=== PATIENT | female | born 1935 | race Caucasian/White ===

== ENCOUNTER 2024-07-08 14:05 | Emergency (ER) | payer MEDICARE, MEDICAID, SELFPAY ==
[2024-07-08] VITALS (8 sets, daily range): BP systolic 121–173; BP diastolic 50–94; PULSE 65–79; RESP 14–18; TEMP 37.6; O2SAT 93–96
--- NOTE | 2024-07-08 14:16 | W.ED.GENADLT ---
Documented by User: Qamar Tello DO 07/09/24 05:59 HPI - General Adult General: Chief complaint: Urogenital-Female Stated complaint: UTI Time Seen by Provider: 07/08/24 14:08 History of Present Illness: 88-year-old female presents emergency room from [facility] with complaints of UTI seems to worsen family is concerned she may be septic. Patient able to give her name and she knows that she is at the hospital but beyond that she really cannot Enterobacter any questions. She does not answer any questions regarding her condition or any symptoms. Per EMS she was started on Macrobid yesterday for UTI. Related Data Home Medications ?Medication ?Instructions ?Recorded ?Confirmed acetaminophen 325 mg tablet 650 mg PO Q4H PRN pain or temp 07/08/24 07/08/24 aspirin 81 mg tablet,delayed 81 mg PO DAILY 07/08/24 07/08/24 release bisacodyl 10 mg rectal suppository 10 mg DC DAILY PRN Constipation 07/08/24 07/08/24 carvedilol 12.5 mg tablet 12.5 mg PO BID 07/08/24 07/08/24 clopidogrel 75 mg tablet 75 mg PO DAILY 07/08/24 07/08/24 furosemide 20 mg tablet 20 mg PO DAILY 07/08/24 07/08/24 loperamide 2 mg capsule See Rx Instructions .Route 07/08/24 07/08/24 .COMPLEX PRN Diarrhea losartan 50 mg tablet 50 mg PO DAILY 07/08/24 07/08/24 magnesium hydroxide 400 mg/5 mL 15 ml PO DAILY PRN Constipation 07/08/24 07/08/24 oral suspension (Milk of Magnesia) nifedipine 30 mg tablet,extended 30 mg PO DAILY 07/08/24 07/08/24 release nitrofurantoin 100 mg PO BID 07/08/24 07/08/24 monohydrate/macrocrystals 100 mg capsule polyethylene glycol 3350 17 17 g PO DAILY 07/08/24 07/08/24 gram/dose oral powder (Miralax) Previous Rx's ?Medication ?Instructions ?Recorded cefdinir 300 mg capsule 300 mg PO BID 7 days #14 caps 07/08/24 tamsulosin 0.4 mg capsule (Flomax) 0.4 mg PO DAILY #30 caps 07/08/24 Allergies Allergy/AdvReac Type Severity Reaction Status Date / Time atorvastatin Allergy Unknown Verified 07/08/24 14:17 metformin Allergy Unknown Verified 07/08/24 14:17 Penicillins Allergy Unknown Verified 07/08/24 14:17 Review of Systems General: Reports: ROS unobtainable due to medical condition PFSH ED PFSH: Medical History (Updated 07/08/24 @ 19:35 by Monique Castañeda MD) Chronic combined systolic and diastolic CHF (congestive heart failure) Uterine prolapse HTN (hypertension) GERD (gastroesophageal reflux disease) CAD (coronary artery disease) Physical Exam Const: GENERAL APPEARANCE: cooperative ORIENTATION/CONSCIOUSNESS: Yes awake, Yes oriented to person and Yes oriented to place HENMT: COMMON NORMALS: normocephalic, atraumatic and hearing grossly normal bilaterally HEAD & SCALP: normocephalic and atraumatic Resp: COMMON NORMALS: normal respiratory effort, No retractions, No use of accessory muscles and clear to auscultation bilaterally AUSCULTATION: clear to auscultation bilaterally Cardio: COMMON NORMALS: regular rate and regular rhythm RATE: regular rate RHYTHM: regular rhythm HEART SOUNDS: Murmur heart sound present diastolic Location: apex Intensity: II/ GI: COMMON NORMALS: Soft to palpation and No hepatosplenomegaly present AUSCULTATION: Yes normoactive bowel sounds PALPATION: Yes Soft to palpation, No Tenderness to palpation present (GI), No Guarding due to palpation present (GI) and Yes No hepatosplenomegaly present : OTHER: Uterine prolapse Extremity: COMMON NORMALS: normal to inspection, capillary refill normal, no clubbing, cyanosis or edema, no calf tenderness and no pedal edema Neuro: SENSORIUM/ORIENTATION: Yes oriented to person and Yes oriented to place Skin: COMMON NORMALS: no rashes or lesions noted GENERAL SKIN EXAM: no rashes or lesions noted Course Vital Signs: Vital signs: Vital Signs Temperature 99.7 F H 07/08/24 14:05 Pulse Rate 65 07/08/24 21:30 Respiratory Rate 16 07/08/24 20:30 Blood Pressure 121/50 07/08/24 17:30 Pulse Oximetry 93 07/08/24 21:30 Oxygen Delivery Me thod Room Air 07/08/24 21:30 MDM - General Adult Medical Decision Making Significant uterine prolapse causing some difficulty with voiding. Initially a mini cath was placed had a large amount but changed to a Stahl and did have complete draining of bladder - 900 mL. Stahl still in place. Care signed out to Dr. Castañeda at change of shift. See final notes for diagnosis and disposition. Patient care was transitioned me at shift change. Awaiting CT results because of the concern for a widened mediastinum on chest x-ray. CT scan shows no acute process. Radiologist believes this was a shadow. This was reviewed and interpreted by myself the emergency room physician. I also reviewed the radiology report. Stahl catheter was placed for urinary retention. Patient has had a fever and mild leukocytosis in her urine and thus I am giving her some antibiotics as well. Assessment and plan: Urinary tract infection Urinary retention ? IV Rocephin and Stahl catheter placement - Discharged home - Discussed plan with patient. Answered any questions. - Evaluation and treatment of this problem were appropriate in the emergency setting. Lab Data 07/08/24 14:17 07/08/24 14:17 Radiology Impressions Abdomen/Pelvis CT 07/08/24 14:35 IMPRESSION: 1. Considerable prolapse of the pelvic floor. 2. Trans urethral Stahl catheter terminating in the empty urinary bladder. Possible diffuse bladder wall thickening. Consider cystitis. 3. 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 4. No other acute findings. 5. Additional details as above. Chest X-Ray 07/08/24 14:35 IMPRESSION: 1. Widening of the superior mediastinum on the right. This may represent a mass or lymphadenopathy. 2. No acute cardiopulmonary finding identified otherwise. Chest CTA 07/08/24 16:56 IMPRESSION: 1. No pulmonary emboli. 2. No focal consolidations. 3. The density seen on the chest radiograph dated earlier this day in the right paratracheal station represents vascular shadows from the right brachiocephalic artery. No mass or lymphadenopathy. Laboratory Results WBC 11.84 10^3/uL (3.29-11.43) H 07/08/24 14:17 RBC 3.51 10^6/uL (3.85-5.65) L 07/08/24 14:17 Hgb 10.30 g/dL (11.27-16.99) L 07/08/24 14:17 Hct 31.6 % (36-47) L 07/08/24 14:17 MCV 90.0 fl (85-98) 07/08/24 14:17 MCH 29.3 pg (27-33) 07/08/24 14:17 MCHC 32.6 g/dL (30-55) 07/08/24 14:17 RDW 13.2 % (12.1-15.1) 07/08/24 14:17 Plt Count 234 10^3/cmm (157-399) 07/08/24 14:17 MPV 10.2 fL (7.4-10.4) 07/08/24 14:17 Neut % (Auto) 87.6 % 07/08/24 14:17 Lymph % (Auto) 5.2 % 07/08/24 14:17 Gilchrist % (Auto) 5.6 % 07/08/24 14:17 Eos % (Auto) 0.8 % 07/08/24 14:17 Baso % (Auto) 0.3 % 07/08/24 14:17 Neut # (Auto) 10.37 10^3/uL (1.8-7.7) H 07/08/24 14:17 Lymph # (Auto) 0.6 10^3/uL (0.8-4.8) L 07/08/24 14:17 [place]christ # (Auto) 0.7 10^3/uL (0.2-0.9) 07/08/24 14:17 Eos # (Auto) 0.1 10^3/uL (0.0-0.8) 07/08/24 14:17 Baso # (Auto) 0.0 10^3/uL (0.0-0.1) 07/08/24 14:17 Nucleated RBC % (auto) 0 % 07/08/24 14:17 Nucleated RBCs # 0.0 /100WBC 07/08/24 14:17 Sodium 135 mmol/L (136-145) L 07/08/24 14:17 Potassium 3.9 mmol/L (3.5-5.1) 07/08/24 14:17 Chloride 99 mmol/L (98-107) 07/08/24 14:17 Carbon Dioxide 23 mmol/L (22-29) 07/08/24 14:17 Anion Gap 16.9 (5-19) 07/08/24 14:17 BUN 25 mg/dL (8-23) H 07/08/24 14:17 Creatinine 0.7 mg/dL (0.5-0.9) 07/08/24 14:17 GFR Calculation Not Reportable 07/08/24 14:17 Glucose 124 mg/dL (65-115) H 07/08/24 14:17 Calculated Osmolality 286 mOsm/kg (285-295) 07/08/24 14:17 Lactic Acid 2.4 mmol/L (0.5-2.2) H 07/08/24 14:17 Lactic Acid (Sepsis) 1.7 mmol/L (0.5-2.2) 07/08/24 17:03 Calcium 8.6 mg/dL (8.5-10.5) 07/08/24 14:17 Total Bilirubin 0.3 mg/dL (0.15-1.2) 07/08/24 14:17 AST 22 U/L (0-32) 07/08/24 14:17 ALT 14 U/L (0-33) 07/08/24 14:17 Alkaline Phosphatase 65 U/L (35-105) 07/08/24 14:17 Total Protein 6.1 g/dL (6.6-8.7) L 07/08/24 14:17 Albumin 3.4 g/dL (3.5-5.2) L 07/08/24 14:17 Globulin 2.7 g/dL (1.3-4.6) 07/08/24 14:17 Urine Color Yellow (Yellow) 07/08/24 14:20 Urine Appearance Clear (CLEAR) 07/08/24 14:20 Urine pH 8.0 (5-7) A 07/08/24 14:20 Ur Specific [place] 1.012 (1.005-1.030) 07/08/24 14:20 Urine Protein Negative (Negative) 07/08/24 14:20 Urine Glucose (UA) Negative (Normal) 07/08/24 14:20 Urine Ketones Negative (Negative) 07/08/24 14:20 Urine Blood Negative (Negative) 07/08/24 14:20 Urine Nitrate Negative (Negative) 07/08/24 14:20 Urine Bilirubin Negative (Negative) 07/08/24 14:20 Urine Urobilinogen 1.0 mg/dL (Negative) 07/08/24 14:20 Ur Leukocyte Esterase Negative (Negative) 07/08/24 14:20 Urine RBC 0-2 /hpf (0-2) 07/08/24 14:20 Urine WBC 6-10 /hpf (0-5) 07/08/24 14:20 Ur Squamous Epith Cells 0-5 /hpf (0-5) 07/08/24 14:20 Amorphous Sediment Not Reportable 07/08/24 14:20 Urine Bacteria None seen /hpf (NONE) 07/08/24 14:20 Hyaline Casts 0.81 /lpf 07/08/24 14:20 Discharge Plan Discharge Patient Disposition: Home Clinical Impression: Urinary tract infection, Urinary retention Condition: Stable Prescriptions: New tamsulosin [Flomax] 0.4 mg capsule 0.4 mg PO DAILY Qty: 30 0RF cefdinir 300 mg capsule 300 mg PO BID 7 Days Qty: 14 0RF No Action losartan 50 mg tablet 50 mg PO DAILY acetaminophen 325 mg Tablet 650 mg PO Q4H PRN (Reason: pain or temp) carvedilol 12.5 mg tablet 12.5 mg PO BID loperamide 2 mg capsule See Rx Instructions .ROUTE .COMPLEX PRN (Reason: Diarrhea) Rx Instructions: TAKE ONE CAPSULE BY MOUTH AFTER EVERY LOOSE STOOL, MAX 16 MG PER DAY. nifedipine 30 mg tablet extended release 30 mg PO DAILY clopidogrel 75 mg tablet 75 mg PO DAILY aspirin [Aspir-81] 81 mg Tablet,Delayed Release (Dr/Ec) 81 mg PO DAILY magnesium hydroxide [Milk of Magnesia] 400 mg/5 mL Suspension 15 ml PO DAILY PRN (Reason: Constipation) bisacodyl 10 mg Suppository 10 mg DC DAILY PRN (Reason: Constipation) furosemide 20 mg tablet 20 mg PO DAILY polyethylene glycol 3350 [Miralax] 17 gram/dose Powder 17 g PO DAILY nitrofurantoin monohyd/m-cryst 100 mg capsule 100 mg PO BID Discharge Orders: Discharge ED (Routine); Ordered 07/08/24 Ordered By: Monique Castañeda Referrals: Marshal Cox PA [Primary Care Provider] - Discharge Diet: Usual diet Discharge Activity: Increase activity as tolerated Patient Instructions: Stahl Catheter Placement and Care (ED), Opioid Safety, Pain Management Activity Restrictions/Additional Instructions: You will need to follow-up with your primary care provider or with urologist in the next 5 to 7 days for Stahl catheter removal and a postvoid residual. Thank you for choosing [facility] for your healthcare needs today. Please realize this is an emergency room and that we are providing you with a medical screening exam and this may not be complete and all inclusive of all the testing and or work up that you may need to determine your ailment or severity of your illness. You have been screened and evaluated and felt safe for discharge. Health conditions do change or evolve sometimes and as such it is important that you follow up with your Primary Doctor to be re checked, 3-5 days is a general good time frame for follow up. You are always welcome to return to the ED for re assessment if your symptoms are worsening or you have new concerns Print Language: Honduran Coding Level of Care Code ED Skills Instructor for Chg Fwd Documented by User: Monique Castañeda MD 07/08/24 19:39 HPI - General Adult General: Chief complaint: Urogenital-Female Stated complaint: UTI Time Seen by Provider: 07/08/24 14:08 Related Data Home Medications ?Medication ?Instructions ?Recorded ?Confirmed acetaminophen 325 mg tablet 650 mg PO Q4H PRN pain or temp 07/08/24 07/08/24 aspirin 81 mg tablet,delayed 81 mg PO DAILY 07/08/24 07/08/24 release bisacodyl 10 mg rectal suppository 10 mg DC DAILY PRN Constipation 07/08/24 07/08/24 carvedilol 12.5 mg tablet 12.5 mg PO BID 07/08/24 07/08/24 clopidogrel 75 mg tablet 75 mg PO DAILY 07/08/24 07/08/24 furosemide 20 mg tablet 20 mg PO DAILY 07/08/24 07/08/24 loperamide 2 mg capsule See Rx Instructions .Route 07/08/24 07/08/24 .COMPLEX PRN Diarrhea losartan 50 mg tablet 50 mg PO DAILY 07/08/24 07/08/24 magnesium hydroxide 400 mg/5 mL 15 ml PO DAILY PRN Constipation 07/08/24 07/08/24 oral suspension (Milk of Magnesia) nifedipine 30 mg tablet,extended 30 mg PO DAILY 07/08/24 07/08/24 release nitrofurantoin 100 mg PO BID 07/08/24 07/08/24 monohydrate/macrocrystals 100 mg capsule polyethylene glycol 3350 17 17 g PO DAILY 07/08/24 07/08/24 gram/dose oral powder (Miralax) Previous Rx's ?Medication ?Instructions ?Recorded cefdinir 300 mg capsule 300 mg PO BID 7 days #14 caps 07/08/24 tamsulosin 0.4 mg capsule (Flomax) 0.4 mg PO DAILY #30 caps 07/08/24 Allergies Allergy/AdvReac Type Severity Reaction Status Date / Time atorvastatin Allergy Unknown Verified 07/08/24 14:17 metformin Allergy Unknown Verified 07/08/24 14:17 Penicillins Allergy Unknown Verified 07/08/24 14:17 PENDING SALE TO [facility] ED PFSH: Medical History (Updated 07/08/24 @ 19:35 by Monique Castañeda MD) Chronic combined systolic and diastolic CHF (congestive heart failure) Uterine prolapse HTN (hypertension) GERD (gastroesophageal reflux disease) CAD (coronary artery disease) Course Vital Signs: Vital signs: Vital Signs Temperature 99.7 F H 07/08/24 14:05 Pulse Rate 65 07/08/24 21:30 Respiratory Rate 16 07/08/24 20:30 Blood Pressure 121/50 07/08/24 17:30 Pulse Oximetry 93 07/08/24 21:30 Oxygen Delivery Me thod Room Air 07/08/24 21:30 MDM - General Adult Medical Decision Making Care signed out to Dr. Castañeda at change of shift. See final notes for diagnosis and disposition. Patient care was transitioned me at shift change. Awaiting CT results because of the concern for a widened mediastinum on chest x-ray. CT scan shows no acute process. Radiologist believes this was a shadow. This was reviewed and interpreted by myself the emergency room physician. I also reviewed the radiology report. Stahl catheter was placed for urinary retention. Patient has had a fever and mild leukocytosis in her urine and thus I am giving her some antibiotics as well. Assessment and plan: Urinary tract infection Urinary retention ? IV Rocephin and Stahl catheter placement - Discharged home - Discussed plan with patient. Answered any questions. - Evaluation and treatment of this problem were appropriate in the emergency setting. Lab Data 07/08/24 14:17 07/08/24 14:17 Radiology Impressions Abdomen/Pelvis CT 07/08/24 14:35 IMPRESSION: 1. Considerable prolapse of the pelvic floor. 2. Trans urethral Stahl catheter terminating in the empty urinary bladder. Possible diffuse bladder wall thickening. Consider cystitis. 3. 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 4. No other acute findings. 5. Additional details as above. Chest X-Ray 07/08/24 14:35 IMPRESSION: 1. Widening of the superior mediastinum on the right. This may represent a mass or lymphadenopathy. 2. No acute cardiopulmonary finding identified otherwise. Chest CTA 07/08/24 16:56 IMPRESSION: 1. No pulmonary emboli. 2. No focal consolidations. 3. The density seen on the chest radiograph dated earlier this day in the right paratracheal station represents vascular shadows from the right brachiocephalic artery. No mass or lymphadenopathy. Laboratory Results WBC 11.84 10^3/uL (3.29-11.43) H 07/08/24 14:17 RBC 3.51 10^6/uL (3.85-5.65) L 07/08/24 14:17 Hgb 10.30 g/dL (11.27-16.99) L 07/08/24 14:17 Hct 31.6 % (36-47) L 07/08/24 14:17 MCV 90.0 fl (85-98) 07/08/24 14:17 MCH 29.3 pg (27-33) 07/08/24 14:17 MCHC 32.6 g/dL (30-55) 07/08/24 14:17 RDW 13.2 % (12.1-15.1) 07/08/24 14:17 Plt Count 234 10^3/cmm (157-399) 07/08/24 14:17 MPV 10.2 fL (7.4-10.4) 07/08/24 14:17 Neut % (Auto) 87.6 % 07/08/24 14:17 Lymph % (Auto) 5.2 % 07/08/24 14:17 Gilchrist % (Auto) 5.6 % 07/08/24 14:17 Eos % (Auto) 0.8 % 07/08/24 14:17 Baso % (Auto) 0.3 % 07/08/24 14:17 Neut # (Auto) 10.37 10^3/uL (1.8-7.7) H 07/08/24 14:17 Lymph # (Auto) 0.6 10^3/uL (0.8-4.8) L 07/08/24 14:17 [place] # (Auto) 0.7 10^3/uL (0.2-0.9) 07/08/24 14:17 Eos # (Auto) 0.1 10^3/uL (0.0-0.8) 07/08/24 14:17 Baso # (Auto) 0.0 10^3/uL (0.0-0.1) 07/08/24 14:17 Nucleated RBC % (auto) 0 % 07/08/24 14:17 Nucleated RBCs # 0.0 /100WBC 07/08/24 14:17 Sodium 135 mmol/L (136-145) L 07/08/24 14:17 Potassium 3.9 mmol/L (3.5-5.1) 07/08/24 14:17 Chloride 99 mmol/L (98-107) 07/08/24 14:17 Carbon Dioxide 23 mmol/L (22-29) 07/08/24 14:17 Anion Gap 16.9 (5-19) 07/08/24 14:17 BUN 25 mg/dL (8-23) H 07/08/24 14:17 Creatinine 0.7 mg/dL (0.5-0.9) 07/08/24 14:17 GFR Calculation Not Reportable 07/08/24 14:17 Glucose 124 mg/dL (65-115) H 07/08/24 14:17 Calculated Osmolality 286 mOsm/kg (285-295) 07/08/24 14:17 Lactic Acid 2.4 mmol/L (0.5-2.2) H 07/08/24 14:17 Lactic Acid (Sepsis) 1.7 mmol/L (0.5-2.2) 07/08/24 17:03 Calcium 8.6 mg/dL (8.5-10.5) 07/08/24 14:17 Total Bilirubin 0.3 mg/dL (0.15-1.2) 07/08/24 14:17 AST 22 U/L (0-32) 07/08/24 14:17 ALT 14 U/L (0-33) 07/08/24 14:17 Alkaline Phosphatase 65 U/L (35-105) 07/08/24 14:17 Total Protein 6.1 g/dL (6.6-8.7) L 07/08/24 14:17 Albumin 3.4 g/dL (3.5-5.2) L 07/08/24 14:17 Globulin 2.7 g/dL (1.3-4.6) 07/08/24 14:17 Urine Color Yellow (Yellow) 07/08/24 14:20 Urine Appearance Clear (CLEAR) 07/08/24 14:20 Urine pH 8.0 (5-7) A 07/08/24 14:20 Ur Specific [place] 1.012 (1.005-1.030) 07/08/24 14:20 Urine Protein Negative (Negative) 07/08/24 14:20 Urine Glucose (UA) Negative (Normal) 07/08/24 14:20 Urine Ketones Negative (Negative) 07/08/24 14:20 Urine Blood Negative (Negative) 07/08/24 14:20 Urine Nitrate Negative (Negative) 07/08/24 14:20 Urine Bilirubin Negative (Negative) 07/08/24 14:20 Urine Urobilinogen 1.0 mg/dL (Negative) 07/08/24 14:20 Ur Leukocyte Esterase Negative (Negative) 07/08/24 14:20 Urine RBC 0-2 /hpf (0-2) 07/08/24 14:20 Urine WBC 6-10 /hpf (0-5) 07/08/24 14:20 Ur Squamous Epith Cells 0-5 /hpf (0-5) 07/08/24 14:20 Amorphous Sediment Not Reportable 07/08/24 14:20 Urine Bacteria None seen /hpf (NONE) 07/08/24 14:20 Hyaline Casts 0.81 /lpf 07/08/24 14:20 All radiology interpretation(s) finalized by discharge Discharge Plan Discharge Patient Disposition: Home Clinical Impression: Urinary tract infection, Urinary retention Condition: Stable Prescriptions: New tamsulosin [Flomax] 0.4 mg capsule 0.4 mg PO DAILY Qty: 30 0RF cefdinir 300 mg capsule 300 mg PO BID 7 Days Qty: 14 0RF No Action losartan 50 mg tablet 50 mg PO DAILY acetaminophen 325 mg Tablet 650 mg PO Q4H PRN (Reason: pain or temp) carvedilol 12.5 mg tablet 12.5 mg PO BID loperamide 2 mg capsule See Rx Instructions .ROUTE .COMPLEX PRN (Reason: Diarrhea) Rx Instructions: TAKE ONE CAPSULE BY MOUTH AFTER EVERY LOOSE STOOL, MAX 16 MG PER DAY. nifedipine 30 mg tablet extended release 30 mg PO DAILY clopidogrel 75 mg tablet 75 mg PO DAILY aspirin [Aspir-81] 81 mg Tablet,Delayed Release (Dr/Ec) 81 mg PO DAILY magnesium hydroxide [Milk of Magnesia] 400 mg/5 mL Suspension 15 ml PO DAILY PRN (Reason: Constipation) bisacodyl 10 mg Suppository 10 mg DC DAILY PRN (Reason: Constipation) furosemide 20 mg tablet 20 mg PO DAILY polyethylene glycol 3350 [Miralax] 17 gram/dose Powder 17 g PO DAILY nitrofurantoin monohyd/m-cryst 100 mg capsule 100 mg PO BID Discharge Orders: Discharge ED (Routine); Ordered 07/08/24 Ordered By: Monique Castañeda Referrals: Marshal Cox PA [Primary Care Provider] - Discharge Diet: Usual diet Discharge Activity: Increase activity as tolerated Patient Instructions: Stahl Catheter Placement and Care (ED), Opioid Safety, Pain Management Activity Restrictions/Additional Instructions: You will need to follow-up with your primary care provider or with urologist in the next 5 to 7 days for Stahl catheter removal and a postvoid residual. Thank you for choosing [facility] for your healthcare needs today. Please realize this is an emergency room and that we are providing you with a medical screening exam and this may not be complete and all inclusive of all the testing and or work up that you may need to determine your ailment or severity of your illness. You have been screened and evaluated and felt safe for discharge. Health conditions do change or evolve sometimes and as such it is important that you follow up with your Primary Doctor to be re checked, 3-5 days is a general good time frame for follow up. You are always welcome to return to the ED for re assessment if your symptoms are worsening or you have new concerns Print Language: Honduran Coding Level of Care Code ED Skills Instructor for Paul Chavez
[2024-07-08 14:22] LABS: Basophils % 0.3 %; Eosinophils # 0.1 10^3/uL (0.0-0.8); Eosinophils % 0.8 %; Hematocrit 31.6 % (36-47); Lymphocytes # 0.6 10^3/uL (0.8-4.8); Lymphocytes % 5.2 %; Mean Corpuscular HGB Conc 32.6 g/dL (30-55); Mean Corpuscular Hemoglobin 29.3 pg (27-33); Mean Platelet Volume 10.2 fL (7.4-10.4); Monocytes # 0.7 10^3/uL (0.2-0.9); Monocytes % 5.6 %; Neutrophils # 10.37 10^3/uL (1.8-7.7); Neutrophils % 87.6 %; Nucleated Red Blood Cells % 0 %; Platelet Count 234 10^3/cmm (157-399); Red Blood Count 3.51 10^6/uL (3.85-5.65); Red Cell Distribution Width 13.2 % (12.1-15.1); White Blood Count 11.84 10^3/uL (3.29-11.43)
--- NOTE | 2024-07-08 14:22 | PC.PHAR ---
Pt is from [facility] med list 07/08/24 2:23pm
--- NOTE | 2024-07-08 14:35 | XR_ITS ---
WS: [id number] Exam: XR chest 1V portable [id number] Date/Time of Exam: 07/08/2024 2:35 PM Reason For Exam: dyspnea/cough No priors. The lungs are clear and fully inflated. Heart size is normal. Signs of cardiac valve replacement. Soft tissue mass along the superior mediastinum on the RIGHT. No pleural effusions. Bilateral high riding humeral heads noted most likely signifying bilateral rotator cuff degeneration. Recommendations: Nonemergent contrast chest CT could be considered for further work-up. XR/XR chest 1V portable [id number] IMPRESSION: 1. Widening of the superior mediastinum on the right. This may represent a mass or lymphadenopathy. 2. No acute cardiopulmonary finding identified otherwise.
--- NOTE | 2024-07-08 14:35 | CTR_ITS ---
PROCEDURE INFORMATION: Exam: CT Abdomen And Pelvis With Contrast Exam date and time: 07/08/2024 3:30 PM Age: 88 years old Clinical indication: Abdominal pain; Generalized; Additional info: Abd pain TECHNIQUE: Imaging protocol: Computed tomography of the abdomen and pelvis with contrast. Radiation optimization: All CT scans at this facility use at least one of these dose optimization techniques: automated exposure control; mA and/or kV adjustment per patient size (includes targeted exams where dose is matched to clinical indication); or iterative reconstruction. Contrast material: OMNIPAQUE 350; Contrast volume: 100 ml; Contrast route: INTRAVENOUS (IV); COMPARISON: CR XR chest 1V portable [id number] 07/08/2024 2:44 PM RADIATION DOSE METRICS: Total DLP (mGy-cm): 481.18 FINDINGS: Limitations: Study is suboptimal due to excessive motion artifact. Further limited by streak artifact from the arm at the side. Also limited by lack of bowel contrast. Lungs: Lung bases are clear as visualized. Diaphragm: Small hiatal hernia. Liver: Normal. No mass. Gallbladder and biliary ducts: Several gallstones in the gallbladder, the largest measuring slightly more than 1 cm. Otherwise, unremarkable. Pancreas: Normal. No ductal dilation. Spleen: Normal. No splenomegaly. Adrenal glands: Normal. No mass. Kidneys and ureters: Parenchymal scarring upper left kidney. Large extrarenal pelves bilaterally. This is believed to be a normal congenital variant. Otherwise, unremarkable. Stomach and bowel: Multiple diverticula from the colon. No diverticulitis. Otherwise, unremarkable. Appendix: No evidence of appendicitis. Intraperitoneal space: Unremarkable. No free air. No significant fluid collection. Vasculature: Small amount of arterial plaque. 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 Otherwise, unremarkable. Lymph nodes: Unremarkable. No enlarged lymph nodes. Urinary bladder: Trans urethral Stahl catheter terminating in the empty urinary bladder. Possible diffuse bladder wall thickening. Consider cystitis. Reproductive: Small uterine fibroid. Otherwise, unremarkable. Bones/joints: Mild scoliosis. Mild to severe multilevel spondylosis. Partial ankylosis visualized lower thoracic spine. Otherwise, unremarkable. Soft tissues: Considerable prolapse of the pelvic floor. A few buttock injection granulomas. Otherwise, unremarkable visualized body wall. Otherwise, unremarkable soft tissues. CT/CT abdomen pelvis w con* [id number] IMPRESSION: 1. Considerable prolapse of the pelvic floor. 2. Trans urethral Stahl catheter terminating in the empty urinary bladder. Possible diffuse bladder wall thickening. Consider cystitis. 3. 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 4. No other acute findings. 5. Additional details as above.
[2024-07-08 14:40] LABS: Alanine Aminotransferase 14 U/L (0-33); Albumin Level 3.4 g/dL (3.5-5.2); Alkaline Phosphatase 65 U/L (35-105); Anion Gap 16.9 (5-19); Aspartate Amino Transferase 22 U/L (0-32); Blood Urea Nitrogen 25 mg/dL (8-23); Calcium 8.6 mg/dL (8.5-10.5); Carbon Dioxide 23 mmol/L (22-29); Chloride 99 mmol/L (98-107); Globulin 2.7 g/dL (1.3-4.6); Glucose 124 mg/dL (65-115); Osmolality Calculated 286 mOsm/kg (285-295); Potassium 3.9 mmol/L (3.5-5.1); Sodium 135 mmol/L (136-145); Total Bilirubin 0.3 mg/dL (0.15-1.2); Total Protein 6.1 g/dL (6.6-8.7)
[2024-07-08 14:41] LABS: Lactic Sepsis W/Reflex 2.4 mmol/L (0.5-2.2)
[2024-07-08 14:42] LABS: Bilirubin Urine Negative (Negative); Blood Urine Negative (Negative); Glucose Urine UA Negative (Normal); Ketones Urine Negative (Negative); Leukocyte Esterase Urine Negative (Negative); Nitrate Urine Negative (Negative); Protein Urine Negative (Negative); Specific Gravity, Urine 1.012 (1.005-1.030); Urine Appearance Clear (CLEAR); Urine Color Yellow (Yellow)
[2024-07-08 14:44] LABS: Add Urine Microscopic? YES; Bacteria Urine None Seen /hpf; Hyaline Casts Urine 0.81 /lpf; RBC Urine 0-2 /hpf (0-2); Squamous Epithelial Cell Urine 0-5 /hpf (0-5)
[2024-07-08 14:58] LABS: UA Slide Review UA Slide Review Perf
[2024-07-08 14:59] LABS: Add Urine Culture? No
[2024-07-08] MEDS: iohexol 350 mg/mL 500 mL Btl (per mL) IV ×2 (15:34→17:54)
[2024-07-08 16:11] LABS: Reflex Lactate Order REFLEX LACTIC ORDERD
--- NOTE | 2024-07-08 16:56 | CTR_ITS ---
PROCEDURE INFORMATION: Exam: CTA Chest With Contrast Exam date and time: 07/08/2024 5:49 PM Age: 88 years old Clinical indication: Other: Enlarged mediastinum TECHNIQUE: Imaging protocol: Computed tomographic angiography of the chest with contrast. Exam focused on the arteries. 3D rendering (Not supervised by radiologist): MIP and/or 3D reconstructed images were created by the technologist. Radiation optimization: All CT scans at this facility use at least one of these dose optimization techniques: automated exposure control; mA and/or kV adjustment per patient size (includes targeted exams where dose is matched to clinical indication); or iterative reconstruction. Contrast material: OMNIPAQUE 350; Contrast volume: 60 ml; Contrast route: INTRAVENOUS (IV); COMPARISON: CR XR chest 1V portable [id number] 07/08/2024 2:44 PM RADIATION DOSE METRICS: Total DLP (mGy-cm): 344.4 FINDINGS: Pulmonary arteries: No pulmonary emboli. Aorta: Unremarkable. No aortic aneurysm. No aortic dissection. Lungs: No focal consolidations. Pleural spaces: Unremarkable. No pneumothorax. No pleural effusion. Heart: Prior TAVR. Coronary arteries: Coronary arterial atherosclerotic calcifications are present. Lymph nodes: Unremarkable. No enlarged lymph nodes. Gallbladder and biliary ducts: Multiple calcified stones in the gallbladder. Bones/joints: Multilevel bridging anterior osteophytes throughout the mid and lower thoracic spine. Soft tissues: Unremarkable. CT/CT angio chest PE protcl [id number] IMPRESSION: 1. No pulmonary emboli. 2. No focal consolidations. 3. The density seen on the chest radiograph dated earlier this day in the right paratracheal station represents vascular shadows from the right brachiocephalic artery. No mass or lymphadenopathy.
[2024-07-08 17:31] LABS: Lactic Acid level (Lactate) 1.7 mmol/L (0.5-2.2)
[2024-07-08] MEDS: cefTRIAXone 1,000 mg SDV 1000 MG IVP (19:51)
== END 2024-07-08 22:06 | disposition home or self-care (01) ==
PROVIDERS: Family Medicine; Emergency Provider Emergency Medicine; PCP Emergency Medicine
DX: N39.0 Urinary tract infection, site not specified (principal); R33.9 Retention of urine, unspecified; Z79.02 Long term (current) use of antithrombotics/antiplatelets; I10 Essential (primary) hypertension; I25.10 Atherosclerotic heart disease of native coronary artery without angina pectoris
CPT/HCPCS: 36415; 51702; 71045; 71275; 74177; 80053; 81001; 83605; 85025; 87040; 96374; 99285; J0696

== ENCOUNTER 2024-12-29 00:33 | Emergency (ER) | payer OTHER, MEDICAID, SELFPAY ==
[2024-12-29 00:35] VITALS: BP 149/87; PULSE 72; RESP 20; TEMP 37.2; O2SAT 97; BMI 21.4
--- OUTSIDE RECORDS SUMMARY | 2024-12-29 00:44 | XMS_ITS | Encounter Summary ---
Author Organization [facility] Address [address] [place] [address] Care Team Providers Care Rivet Tester Name Role Phone Alexander Das MD Primary Care Provider [phone] Reason for Referral * Outpatient Services (Routine) - Closed Specialty Diagnoses / Procedures Referred By Contac t Referred To Contact Diagnoses Thoracic or lumbosacral neuritis or radiculitis, unspecified Procedures XR FLUORO NEEDLE GUIDANCE Sam Altamirano MD NO ADDRESS ON FILE Referral ID Status Reason Start Date Expiration Date Visits Re quested Visits Authorized [id number] Closed 06/10/2013 07/11/2014 1 1 UTER REPAIR INSTRUCTOR Encounter Details Date Type Department Care Team (Late st Contact Info) Description 06/10/2013 Ancillary Orders [facility] Pain Management Procedures [place] [address] [place] [id number] Sam Altamirano MD NO ADDRESS ON FILE Thoracic or lumbosacral neuritis or radiculitis, unspecified (Primary Dx) Social History Tobacco Use Types Packs/Day Years Used Date Smoking Tobacco: Former Cigarettes 0.5 3 0 04/16/1956 - 04/16/1959 Smokeless Tobacco: Never Alcohol Use Standard Drinks/Week Comments No 0 (1 standard drink = 0.6 oz pur e alcohol) Comments No Sex and Gender Information Value Date Recorded Sex Assigned at Not on file Legal Sex Female 4:08 AM COMPUTER REPAIR INSTRUCTOR Gender Identity Not on file Sexual Orientation Not on file Occupation Industry Job Start Date Job End Date Not on file Not on file Not on file Not on file documented as of this encounter Plan of Treatment Not on file documented as of this encounter Results * XR FLUORO NEEDLE GUIDANCE (06/10/2013 7:59 AM COMPUTER REPAIR INSTRUCTOR) Anatomical Region Laterality Modality Computed Radiogr aphy Narrative 06/10/2013 8:00 AM COMPUTER REPAIR INSTRUCTOR Order information only. Exam was auto-finalized. Procedure Note Juanjose Reardon, RT - 06/10/2013 Order information only. Exam was auto-finalized. us Sam Altamirano MD DIAGNOSTIC IMAGING ORDERAB LES Final Result documented in this encounter Visit Diagnoses Diagnosis Thoracic or lumbosacral neuritis or radiculitis, unspecified- Primary Thoracic or lumbosacral neuritis or radiculitis, unspecified documented in this encounter Care Teams Rivet Tester Relationship Specialty Start Date End Date Alexander Das MD [address] [place] [address] PCP - General Family Practice 01/06/15 documented as of this encounter
--- OUTSIDE RECORDS SUMMARY | 2024-12-29 00:45 | XMS_ITS | Clinical Summary ---
Author Organization [facility] Address [address] [address] Care Team Providers Care Technology And Engineering Teacher Name Role Phone Alexander Das MD Primary Care Provider [phone] Allergies Active Allergy Reactions Criticality Noted Date Comments Atorvastatin Muscle Pain Low 08/22/2018 Metformin Nausea and Vomiting High 06/28/2011 Penicillins Rash Low 01/17/2008 Medications acetaminophen (TYLENOL) 325 mg Oral tablet Take 650 mg by mouth every 4 hours as needed. Active calcium carbonate + vitamin D (CALCIUM 600 + D) 600 mg(1,500mg) -400 unit Oral TabIndications:Ty pe II or unspecified type diabetes mellitus without mention of complication, not stated as uncontrolled Take 2 Tabs by mouth daily. Active aspirin (MAITE CHEWABLE) 81 mg Tablet, Chewable Take 1 Tablet (81 mg) by mouth daily. 30 Tablet 3 07/17/2015 Active LUMIGAN 0.01 % solution 06/16/2016 Active TRUEPLUS LANCETS 33 gauge TEST 4 TIMES DAILY. 100 Each 2 10/24/2016 Active meclizine (ANTIVERT) 25 mg tablet Take 1 Tablet (25 mg) by mouth 3 times daily as needed for Dizziness. 30 Tablet 07/11/2018 Active pantoprazole (PROTONIX) 40 mg Tablet, Delayed Release (E.C.) TAKE ONE TABLET BY MOUTH EVERY DAY 30 Tablet 11 06/24/2019 Active carvediloL (COREG) 12.5 mg tablet Take 1 Tablet (12.5 mg) by mouth 2 times daily. 180 Tablet 3 09/01/2020 Active losartan (COZAAR) 50 mg tablet Take 1 Tablet (50 mg) by mouth daily. 90 Tablet 3 09/01/2020 Active clopidogreL (PLAVIX) 75 mg Tablet Take 1 Tablet (75 mg) by mouth daily. 90 Tablet 3 09/01/2020 Active furosemide (LASIX) 20 mg tablet Take 1 Tablet (20 mg) by mouth daily. 90 Tablet 3 09/01/2020 Active NIFEdipine (PROCARDIA XL) 30 mg Extended Release 24 hour tablet Take 1 Tablet (30 mg) by mouth daily. 90 Tablet 3 09/01/2020 Active pravastatin (PRAVACHOL) 20 mg tablet 1 tablet Sunday, Sunday, Sunday only. 40 Tablet 3 09/23/2020 Active Active Problems Problem Noted Date Diagnosed Date Gastroesophageal reflux disease without esophagi tis 10/03/2020 Prediabetes 02/18/2019 Iron deficiency anemia 10/19/2018 Uterine procidentia 09/09/2018 Cystocele with uterine prolapse 08/01/2018 Atherosclerosis of [place] co ronary artery of [place] heart without angina pectoris 07/30/2018 Personal history of HI (myocardial infarction) 0 2015 Aortic valve prosthesis present 07/26/2015 MR (mitral regurgitation) 07/07/2015 Refused influenza vaccine 03/28/2015 Mixed hyperlipidemia 03/10/2015 History of giant cell arteritis 09/14/2011 Ataxia 06/14/2011 Essential hypertension 01/17/2008 Resolved Problems Problem Noted Date Diagnosed Date Resolved Date Blood glucose elevated 10/19/201802/18 Acute respiratory failure with hypoxia 08/02/2018 10/19/2018 Urinary retention 08/01/2018 10/19/2018 Complete uterine prolapse 08/01/2018 Bacteremia 07/31/2018 10/19/2018 Severe sepsis without septic shock 07/30/2018 10/19/2018 Acute cystitis without hematuria 07/30/2018 10/19/2018 Moderate protein-calorie malnutrition 07/30/2018 10/19/2018 Elevated troponin 07/05/2018 10/19/2018 Hypertensive urgency 07/05/2018 019 Submandibular gland swelling 07/25/2016 10/26/2016 Atherosclerosis of [place] co ronary artery of [place] heart with angina pectoris 07/07/20152016 Acute exacerbation of CHF (c ongestive heart failure) 07/01/2015 10/26/2016 Acute bronchitis 07/01/2015 10/26/2016 Controlled type 2 diabetes darren martinez without complication, without long-term current use of insulin 03/28/2015 06/30/2018 DM type 2, controlled, with complication 01/07/2015 03/28/2015 Bowel incontinence 04/06/2014 9 BRBPR (bright red blood per rectum) 04/06/2014 06/30/2018 Altered bowel function 04/06/201406/30 Glaucoma suspect 02/11/2014 06/30/2018 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 10/19/2018 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 08/07/201211/05 Eschar of scalp 11/09/2011 10/19/2018 Acute renal failure 08/20/2011 03/10/20 15 Dehydration 08/20/2011 11/06/2012 Metabolic acidosis 08/20/2011 2 Hyponatremia 08/20/2011 11/16/2011 Hypotension 08/20/2011 11/06/2012 Stroke 08/20/2011 02/05/2013 Overview (08/20/2011): Sudden vision loss of right eye most likely from central retinal artery occlusion Elevated sed rate 08/20/2011 09/14/2011 Overview (08/20/2011): Evaluation for temporal arteritis Generalized weakness 08/20/2011 013 Epigastric pain 08/20/2011 11/06/2012 Nausea & vomiting 08/20/2011 11/16/2011 Anemia 08/04/2011 08/06/2011 Headache(784.0) 08/04/2011 11/06/2012 UTI (lower urinary tract infection) 06/17/2011 11/06/2012 Overview (06/18/2011): levaquin started 3-4-12 Nausea with vomiting 06/14/2011 012 Constipation 06/14/2011 11/06/2012 Aortic stenosis, severe 06/14/201107/15 Overview (06/14/2011): Noted on Transthoracic echo CVA (cerebral infarction) 06/10/2011 DM w/o complication type II 01/17/2008 01/06/2015 Hyperlipidemia 01/17/2008 03/10/2015 Acute congestive heart failure 10/26/2016 Nonrheumatic aortic valve stenosis 10/26/2016 TIA - brief partial expressi ve aphasia 07/14/15 at 1900 10/26/2016 Immunizations Immunization Administration Dates Next Due Influenza Seasonal Unspecifi ed Formulation IM 01/14/2007 Influenza Vaccine High Dose 65+ Yrs IM 0,02/18/2019,02/18/2019 PNEUMOVAX (PPSV23) pneumococ javi polysaccharide 23-valent Vaccine 02/25/2020 PREVNAR (PCV13) pneumococcal 13-valent conjugate Vaccine 02/18/2019 Pneumococcal 13-tatyana Conj Vac c Patient Supplied 02/18/2019 Family History Medical History Relation Name Comments Diabetes Brother 1 Heart Disease Brother 2 Cancer Brother 3 Cancer Brother 4 Cancer Brother 5 Other Brother 6 infant Other Brother 7 Healthy Daughter 1 Healthy Daughter 2 Stroke Father Healthy Sister 1 Healthy Sister 2 Healthy Sister 3 Healthy Sister 4 Healthy Sister 5 Healthy Sister 6 Healthy Sister 7 Breast Cancer Sister 8 Heart Disease Sister 8 Blindness Neg Hx Detachment/Tears Neg Hx Glaucoma Neg Hx Macular Degen Neg Hx Relation Name Status Comments Brother 1 Alive Brother 2 Brother 3 Brother 4 Brother 5 Brother 6 Brother 7 Daughter 1 Alive Daughter 2 Alive Father Mother age 82 Sister 1 Alive Sister 2 Alive Sister 3 Alive Sister 4 Alive Sister 5 Alive Sister 6 Alive Sister 7 Alive Sister 8 Social History Tobacco Use Types Packs/Day Years Used Date Smoking Tobacco: Former Cigarettes 0.5 3 0 04/16/1956 - 04/16/1959 Smokeless Tobacco: Never Tobacco Cessation:Counseling Given: No Alcohol Use Standard Drinks/Week Comments No 0 (1 standard drink = 0.6 oz pur e alcohol) Social Connections Answer Date Recorded In a typical week, how many times do you talk on the phone with family, friends, or neighbors? More than three times a week 03/25/2020 How often do you get togethe r with friends or relatives? More than three times a week 03/25/2020 How often do you attend chur ch or islam services? Never 03/25/2020 Do you belong to any clubs o r organizations such as baptist groups, unions, fraternal or athletic groups, or school groups? Yes 03/25/2020 Attends Club or Organization Meetings Not on ben e 03/25/2020 Marital Status Not on file 03/25/2020 Financial Resource Strain Answer Date R ecorded How hard is it for you to pa y for the very basics like food, housing, medical care, and heating? Not hard at all 03/25/2020 Food Insecurity Answer Date Recorded Within the past 12 months, y ou worried that your food would run out before you got the money to buy more. Never true 03/25/20 20 Within the past 12 months, t he food you bought just didn't last and you didn't have money to get more. Never true 03/25/2020 Transportation Needs Answer Date Record ed In the past 12 months, has l ack of transportation kept you from medical appointments or from getting medications? No 03/16 In the past 12 months, has l ack of transportation kept you from meetings, work, or from getting things needed for daily living? No 03/25/2020 Education Answer Date Recorded What is the highest level of school you have completed or the highest degree you have received? 8th grade 03/25/2020 Comments No Sex and Gender Information Value Date Recorded Sex Assigned at Not on file Legal Sex Female 4:08 AM TRAFFIC CONTROL SIGNALER Gender Identity Not on file Sexual Orientation Not on file Occupation Industry Job Start Date Job End Date Not on file Not on file Not on file Not on file Last Filed Vital Signs Vital Sign Reading Time Taken Comments Blood Pressure 110/64 09/23/2020 10:46 AM CDT Pulse 71 09/23/2020 10:46 AM CDT Temperature 37.1 C (98.7 F) 09/23/2020 10:46 AM CDT Respiratory Rate 16 09/23/2020 10:4 6 AM CDT Oxygen Saturation 96% 09/23/2020 10: 46 AM CDT Inhaled Oxygen Concentration - - Weight 58.4 kg (128 lb 12.8 oz) 021 10:46 AM CDT Height 154.9 cm (5' 1 ) 09/23/2020 10:4 6 AM CDT Body Mass Index 24.34 09/23/2020 10:46 AM CDT Plan of Treatment Health Maintenance Due Date Last Done Comments DTAP/TDAP/TD VACCINES (1 - Tdap) 10[birth year]03/1954 ZOSTER VACCINE (1 of 2) 10/03/1985 OSTEOPOROSIS SCREENING 10/03/2000 RSV VACCINE (60+ or ) (1 - 1-dose 75+ series) 10/03/2010 DIABETES ANNUAL RETINAL EXAM 08/14/2015, 08/13/2014, 08/13/2014, Additional history exists DIABETES MICROALBUMIN ANNUAL SCREEN 02/13/2020 02/12/2019, 04/07/2016, 03/15/2015, Additional history exists DIABETES HBA1C Q 6 MONTHS 09/15/20202019, 09/09/2019, 09/09/2019, Additional history exists LDL CHOLESTEROL ANNUAL 03/17/2021 0, 09/09/2019, 02/12/2019, Additional history exists Traditional Medicare (ACO) A nnual Wellness Visit 03/26/2021 03/25/2020, 02/18/2019, 12/25/2017 DIABETES ANNUAL FOOT EXAM 09/23/20212020, 11/25/2013, 05/26/2011, Additional history exists INFLUENZA VACCINE (#1) 2024 0, 02/18/2019, 02/18/2019, Additional history exists PNEUMOCOCCAL VACCINE 50+ YEARS Completed 1 04/26/2019, 02/18/2019, 02/18/2019 Medical Devices Implanted Type Area Pastry Wrapper Device Identifier Shelf Expiration Date Model / Serial / Lot Lens [id number] 19.0 - [id number] Implanted:Qty: 1 on 09/26/2011 at [facility] Eye Left: Eye [facility] 06/25/2016 [id number] / [id number] / Promus 3x12-07/08/2015 Implanted:07/07 (Quantity not on file) Stent Resolute [id number]/24/20 16 Implanted:07/07 (Quantity not on file) Stent Davis Barbara 3-07/14/2015 Implanted:07/13 (Quantity not on file) Valve [id number] / [id number] / Description:14 FR CATHETER U SED Procedures Procedure Name Priority Date/Time Associated Diagnosis Comments LIPID PANEL Routine 03/17/2020 8:22 AM TRAFFIC CONTROL SIGNALER Mixed hyperlipidemia Personal history of HI (myocardial infarction) Iron deficiency anemia secondary to inadequate dietary iron intake HEMOGLOBIN A1C Routine 03/17/2020 8:22 AM TRAFFIC CONTROL SIGNALER Mixed hyperlipidemia Personal history of HI (myocardial infarction) Iron deficiency anemia secondary to inadequate dietary iron intake Controlled type 2 diabetes mellitus without complication, without long-term current use of insulin ([facility]) MICROALBUMIN/CREATIN INE RATIO, RANDOM UR Routine 02/12/2019 8:10 AM CDT Controlled type 2 diabetes mellitus without complication, without long-term current use of insulin ([facility]) DIABETES EYE EXAM Routine 03/19/2012 from Last 3 Months or Most Recently Relevant to Health Maintenance Results * (ABNORMAL) HEMOGLOBIN A1C (03/17/2020 8:22 AM TRAFFIC CONTROL SIGNALER) HEMOGLOBIN A1C 5.8(H) See Comment % 03/17/2020 8:58 PM TRAFFIC CONTROL SIGNALER [facility] [place] EST. AVG GLUCOSE, A1C 120 mg/dL 03/17/2020 8:58 PM TRAFFIC CONTROL SIGNALER [facility] Blood Venipuncture / Unknown 03/17/2020 8:22 AM TRAFFIC CONTROL SIGNALER 03/17/2020 8:40 PM TRAFFIC CONTROL SIGNALER Narrative [facility] - 03/17/2020 8:58 PM TRAFFIC CONTROL SIGNALER HGB A1C INTERPRETATION NORMAL: <5.7% PRE-DIABETES: 5.7 - 6.4% DIABETES: 6.5% OR GREATER Falsely low A1C measurements can occur when: 1. Anemia and/or hemolytic anemia is present. 2. Hemoglobin variants present. 3. Renal failure. 4. Transfusion of blood product in the last 120 days. We recommend ordering a fructosamine test([id number]) to more accurately assess glycemic status if any of the above conditions are present. us Alexander Das MD CHEMISTRY ORDERABLES Final Resu lt [facility] CLIA# [id number] [address] [place] [address] * (ABNORMAL) LIPID PANEL (03/17/2020 8:22 AM TRAFFIC CONTROL SIGNALER) CHOLESTEROL 199 <200 mg/dL 03/17/2020 9:48 PM [facility] TRIGLYCERIDE 222(H) <150 mg/dL 03/17/2020 9:48 PM [facility] HDL 39(L) 40 - 59 mg/dL 03/17/2020 9:48 PM [facility] LDL CALCULATED 116(H) <100 mg/dL 03/17/2020 9:48 PM [facility] NON-HDL CHOLESTEROL 160(H) <130 mg/dL 03/17/2020 9:48 PM [facility] Blood Venipuncture / Unknown 03/17/2020 8:22 AM TRAFFIC CONTROL SIGNALER 03/17/2020 8:40 PM [facility] Narrative [facility] - 03/17/2020 9:48 PM TRAFFIC CONTROL SIGNALER TOTAL CHOLESTEROL mg/dL Desirable <200 Borderline high 200-239 High >=240 TRIGLYCERIDES mg/dL Normal <150 Borderline high 150-199 High 200-499 Very high >=500 HDL CHOLESTEROL mg/dL Low <40 Normal 40-59 Desirable >=60 NON HDL CHOLESTEROL mg/dL Optimal <130 Near Optimal 130-159 Borderline High 160-189 Very High >=190 CALCULATED LDL mg/dL LDL <70, OPTIMAL if have Atherosclerotic cardiovascular disease (ASCVD) or intermediate or higher (>7.5%) 10 year risk of ASCVD including most adults with diabetes. LDL <100, Optimal in adult patients with low (<7.5%) 10 year ASCVD risk LDL 100-160, Suboptimal LDL >160, High LDL >190, Very high ATPIII Guidelines Reference Ranges for Lipid Panels (NCEP/AMA) . us Alexander Das MD CHEMISTRY ORDERABLES Final Resu lt [facility] CLIA# [id number] [address] [place] [address] * (ABNORMAL) MICROALBUMIN/CREATININE RATIO, RANDOM UR (02/12/2019 8:10 AM CDT) MICROALBUMIN, URINE 3.6 No Reference Range mg/dL 02/12/2019 8:17 PM CDT [facility] CREATININE, URINE 113.2 29.0 - 226.0 mg/dL 02/12/2019 8:17 PM CDT [facility] Comment:Reference Range vari es with fluid intake and diet. MICROALBUMIN/ CREAT RATIO, UR 31.8(H) <25.0 mg/g 02/12/2019 8:17 PM CDT [facility] Urine URINE SPECIMEN OBTAINED BY CLEAN CATCH PROCEDURE / Unknown Collection / Unknown 02/12/2019 8:10 AM CDT 02/12/2019 7:37 PM CDT Narrative [facility] - 02/12/2019 8:17 PM CDT Condition Microalbumin/Creat ratio Normal Males <17 Normal Females <25 Microalbuminuria Males 17-299 Microalbuminuria Females 25-299 Overt proteinuria >=300 us Alexander Das MD URINE ORDERABLES Final Result [facility] IA# [id number] [address] [place] [id number] * DIABETES EYE EXAM (03/19/2012) us Abstract Spg Provider HEALTH MAINTENANCE Final R esult from Last 3 Months or Most Recently Relevant to Health Maintenance Insurance MEDICARE PART A [place] Advance Directives For more information, please contact: [phone] * Full Code (Latest Code Status on File) Date Activated Date Inactivated Comments 07/30/2018 2:46 AM 08/04/2018 2:49 PM * Full Code Date Activated Date Inactivated Comments 07/05/2018 6:18 AM 07/06/2018 3:45 PM * Full Code Date Activated Date Inactivated Comments 07/14/2015 7:41 PM 07/17/2015 2:09 PM * Full Code Date Activated Date Inactivated Comments 07/14/2015 9:25 AM 07/14/2015 7:41 PM * Full Code Date Activated Date Inactivated Comments 07/13/2015 2:32 PM 07/14/2015 9:25 AM Care Teams Technology And Engineering Teacher Relationship Specialty Start Date End Date Alexander Das MD [address] [place] [id number] PCP - General Family Practice 01/06/15
--- OUTSIDE RECORDS SUMMARY | 2024-12-29 00:45 | XMS_ITS | Encounter Summary ---
Author Organization [facility] Address [address] [place] [address] Care Team Providers Care Metal Finisher Name Role Phone Alexander Das MD Primary Care Provider [phone] Encounter Details Date Type Department Care Team (Latest Contact Info) Description 04/19/2005 Outpatient Historical [facility] [place] [address] [place] [address] [phone] Annabella Badillo, [facility] [address] [place] [address] [phone] HYPERTENSION NOS (Primary Dx) Social History Tobacco Use Types Packs/Day Years Used Date Smoking Tobacco: Never Assessed Comments Unknown Sex and Gender Information Value Date Recorded Sex Assigned at Not on file Legal Sex Female 4:08 AM CLINICAL DIRECTOR Gender Identity Not on file Sexual Orientation Not on file documented as of this encounter Plan of Treatment Not on file documented as of this encounter Visit Diagnoses Diagnosis Unspecified essential hypertension- Primary documented in this encounter Care Teams Metal Finisher Relationship Specialty Start Date End Date Alexander Das MD [address] [place] [phone] PCP - General Family Practice 01/06/15 documented as of this encounter
--- OUTSIDE RECORDS SUMMARY | 2024-12-29 00:45 | XMS_ITS | Encounter Summary ---
Author Organization [facility] Address [address] [place] [address] Care Team Providers Care Top Trimmer Name Role Phone Alexander Das MD Primary Care Provider [phone] Encounter Details Date Type Department Care Team (Latest Contact Info) Description 06/16/2005 Outpatient Historical [facility] [address] [place] [address] [phone] Elena Crawford MD [address] [place] [phone] HYPERTENSION NOS (Primary Dx) Social History Tobacco Use Types Packs/Day Years Used Date Smoking Tobacco: Never Assessed Comments Unknown Sex and Gender Information Value Date Recorded Sex Assigned at Not on file Legal Sex Female 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
--- OUTSIDE RECORDS SUMMARY | 2024-12-29 00:45 | XMS_ITS | Encounter Summary ---
Author Organization [facility] Address [address] [place] [address] Care Team Providers Care Cost And Sales Record Supervisor Name Role Phone Alexander Das MD Primary Care Provider [phone] Encounter Details Date Type Department Care Team (Latest Contact Info) Description 01/09/2007 Outpatient Historical [facility] [address] [place] [address] [phone] Elena Crawford MD [address] [place] [address] Unspecified Essential Hypertension (Primary Dx); DM w/o Complication Type II (CMS/HCC) Social History Tobacco Use Types Packs/Day Years Used Date Smoking Tobacco: Never Assessed Comments Unknown Sex and Gender Information Value Date Recorded Sex Assigned at Not on file Legal Sex Female 4:08 AM FABRICATOR SPECIAL ITEMS Gender Identity Not on file Sexual Orientation Not on file documented as of this encounter Plan of Treatment Not on file documented as of this encounter Visit Diagnoses Diagnosis Unspecified essential hypertension- Primary Type II or unspecified type diabetes mellitus without mention of complication, not stated as uncontrolled documented in this encounter Care Teams Cost And Sales Record Supervisor Relationship Specialty Start Date End Date Alexander Das MD [address] [place] [phone] PCP - General Family Practice 01/06/15 documented as of this encounter
--- OUTSIDE RECORDS SUMMARY | 2024-12-29 00:45 | XMS_ITS | Encounter Summary ---
Author Organization [facility] Address [address] [place] [address] Care Team Providers Care Mud Tank Operator Name Role Phone Alexander Das MD Primary Care Provider [phone] Reason for Referral * Outpatient Services (Routine) - Closed Specialty Diagnoses / Procedures Referred By Contac t Referred To Contact Diagnoses Unspecified essential hypertension Preoperative clearance Aortic stenosis, moderate Procedures ECHO COMPLETE Les Perez MD [address] [facility] [address] [place] [address] Phone: tel: fax: [facility] Pre-Registration [place] CALL TO MAKE APPOINTMENT ONLY [address] [place] [address] Phone: tel: fax: Referral ID Status Reason Start Date Expiration Date Visits Re quested Visits Authorized [id number] Closed 01/15/2013 03/07/2013 1 1 Encounter Details Date Type Department Care Team (Late st Contact Info) Description 01/15/2013 Ancillary Orders [facility]- [place] [address] [place] [address] Les Perez MD [address] [place] [address] Unspecified essential hypertension (Primary Dx); Preoperative clearance; Aortic stenosis, moderate Social History Tobacco Use Types Packs/Day Years Used Date Smoking Tobacco: Former Cigarettes 0.5 3 0 04/16/1956 - 04/16/1959 Smokeless Tobacco: Never Alcohol Use Standard Drinks/Week Comments No 0 (1 standard drink = 0.6 oz pur e alcohol) Comments No Sex and Gender Information Value Date Recorded Sex Assigned at Not on file 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 Gender Identity Not on file Sexual Orientation Not on file Occupation Industry Job Start Date Job End Date Not on file Not on file Not on file Not on file documented as of this encounter Plan of Treatment Not on file documented as of this encounter Results * ECHO COMPLETE (01/15/2013 10:58 AM CDT) 01/15/2013 9:47 AM CDT Narrative INTERFACE SYSTEM - 01/15/2013 12:15 PM CDT [facility] [address] [facility] [address] [place] [address] Transthoracic Echocardiography Patient: Alina Loaiza Study ID: ECHO STRESS TEST Gender: F : 1935 Age: 77 Room: Study Date: 01/15/2013 Pt Status: Outpatient Study Time: 09:47 AM Ordering:Les Perez [[id number]] Interpreting:Les Perez [[id number]] Low Voltage Technician: Mallorie Morfin [facility] Indications and History: Pre-operative Cardiovascular Evaluation. Aortic Stenosis. Hypertension. Labs, prior tests, procedures, and surgery: Transthoracic echocardiography (August 20, 2011). The aortic valve showed moderate stenosis. EF was 55%. Procedure information: Comparison was made to the study of August 20, 2011. Study status: Routine. Procedure: Transthoracic echocardiography. Image quality was fair. Scanning was performed from the parasternal, apical, subcostal, and suprasternal notch acoustic windows. Transthoracic stress echocardiography. Stress portion was not performed due to baseline echocardiographic abnormalites detected. Study components: M-mode, 2D, complete spectral Doppler, and color Doppler. Height: Height: 154.9cm. Height: 61in. Weight: Weight: 64kg. Weight: 140.7lb. Body mass index: BMI: 26.7kg/m^2. Body surface area: BSA: 1.68m^2. Patient status: Outpatient. Summary and Conclusion: - Left ventricle: The cavity size was normal. Wall thickness was increased in a pattern of moderate LVH. Systolic function was normal. The estimated ejection fraction was in the range of 60% to 65%. No diagnostic regional wall motion abnormality identified. Doppler parameters are consistent with abnormal left ventricular relaxation (grade 1 diastolic dysfunction). - Right ventricle: The cavity size was normal. Systolic function was normal. Systolic pressure was within the normal range. - Atrial septum: The interatrial septum was hypermobile. - Aortic valve: Trileaflet; moderately thickened, moderately calcified leaflets. There was severe stenosis. Mean gradient: 42mm Hg (S). Peak gradient: 77mm Hg (S). VTI ratio of LVOT to aortic valve: 0.18. Valve area: 0.58cm^2(VTI). Peak velocity ratio of LVOT to aortic valve: 0.17. Valve area: 0.54cm^2 (Vmax). - Mitral valve: Mildly thickened leaflets. Mild regurgitation. - Tricuspid valve: Mild regurgitation. - Pulmonic valve: Trivial to mild regurgitation. Comparison: Compared to the previous study, these findings represent worsening of aortic stenosis. Cardiac Anatomy: LEFT VENTRICLE: The cavity size was normal. Wall thickness was increased in a pattern of moderate LVH. Systolic function was normal. The estimated ejection fraction was in the range of 60% to 65%. No diagnostic regional wall motion abnormality identified. Doppler parameters are consistent with abnormal left ventricular relaxation (grade 1 diastolic dysfunction). RIGHT VENTRICLE: The cavity size was normal. Systolic function was normal. Systolic pressure was within the normal range. LEFT ATRIUM: The atrium was normal in size. RIGHT ATRIUM: The atrium was normal in size. ATRIAL SEPTUM: The interatrial septum was hypermobile. No defect or patent foramen ovale was identified. AORTIC VALVE: Trileaflet; moderately thickened, moderately calcified leaflets. Valve mobility was restricted. Doppler: There was severe stenosis. Trivial regurgitation. VTI ratio of LVOT to aortic valve: 0.18. Valve area: 0.58cm^2(VTI). Indexed valve area: 0.35cm^2/m^2 (VTI). Peak velocity ratio of LVOT to aortic valve: 0.17. Valve area: 0.54cm^2 (Vmax). Indexed valve area: 0.32cm^2/m^2 (Vmax). Mean gradient: 42mm Hg (S). Peak gradient: 77mm Hg (S). MITRAL VALVE: Mildly thickened leaflets. Mobility was not restricted. No echocardiographic evidence for prolapse. Doppler: There was no evidence for stenosis. Mild regurgitation. Valve area by pressure half-time: 3.39cm^2. Indexed valve area by pressure half-time: 2.02cm^2/m^2. TRICUSPID VALVE: Structurally normal valve. Mobility was not restricted. Doppler: There was no evidence for stenosis. Mild regurgitation. PULMONIC VALVE: Not well visualized. Doppler: There was no evidence for stenosis. Trivial to mild regurgitation. PERICARDIUM: There was no pericardial effusion. AORTA: Aortic root: The aortic root was normal in size. Aortic arch: The aortic arch was normal in size. SYSTEMIC VEINS: Inferior vena cava: The vessel was normal in size. INTRACARDIAC MASS THROMBUS: No intracavitary masses or thrombi detected. 2D measurements Adult Normal Range Left ventricle LVID ED, chord, PLAX *41.3 mm 43-52 LVID ES, chord, PLAX *19.48 mm 23-38 FS, chord, PLAX 53 % >29 LVPW, ED 16.45 mm IVS/LVPW ratio, ED 0.99 <1.3 Ventricular septum IVS, ED 16.33 mm LVOT Diam, S 20.1 mm AP diam 20.15 mm Area 3.17 cm^2 Aorta Root diam, ED 24.13 mm AAo AP diam, S 30.94 mm Right ventricle RVID ED, PLAX *17.27 mm 19-38 Doppler measurements Adult Normal Range Left ventricle IVRT 97 ms 60-100 Ea, lat paul, tiss DP 64.79 cm/s E/Ea, lat palu, tiss DP 1 LVOT Peak gracia, S 75.12 cm/s VTI, S 18.53 cm HR 74 bpm Cardiac output 4.4 L/min Cardiac index 2.6 L/(min-m^2) Aortic valve Peak gracia, S 440.14 cm/s Mean gracia, S 308.65 cm/s VTI, S 102.53 cm Mean gradient, S 42 mm Hg Peak gradient, S 77 mm Hg VTI ratio LVOT/AV 0.18 Area, VTI 0.58 cm^2 Area index (VTI) 0.35 cm^2/m^2 Peak gracia ratio, LVOT/AV 0.17 Area, Vmax 0.54 cm^2 Area index (Vmax) 0.32 cm^2/m^2 Mitral valve Peak E gracia 64.79 cm/s Peak A gracia 114.83 cm/s Deceleration time 224 ms 150-230 Pressure half-time 65 ms Peak E/A ratio 0.56 Area (PHT) 3.39 cm^2 Area index (PHT) 2.02 cm^2/m^2 Tricuspid valve Regurg peak gracia 234.14 cm/s Peak RV-RA gradient, S 22 mm Hg Max regurg gracia 234.14 cm/s Legend: Mean values are shown as u=mean value. Asterisk (*) gipson values outside specified normal range. [facility] is accredited with the Intersocietal Commission for the Accreditation of Echocardiography Laboratories (ICAEL) Prepared and Electronically Authenticated Les Perez [[id number]] Confirmed 01/15/2013 12:15 Procedure Note Les Perez MD - 01/15/2013 [facility] [facility] [address] [place] [address] Transthoracic Echocardiography Patient: Alina Loaiza Study ID: ECHO STRESS TEST Gender: F : 1935 Age: 77 Room: Study Date: 01/15/2013 Pt Status: Outpatient Study Time: 09:47 AM Ordering:Les Perez [[id number]] Interpreting:Les Perez [[id number]] Low Voltage Technician: Mallorie Morfin [facility] Indications and History: Pre-operative Cardiovascular Evaluation. Aortic Stenosis. Hypertension. Labs, prior tests, procedures, and surgery: Transthoracic echocardiography (August 20, 2011). The aortic valve showed moderate stenosis. EF was 55%. Procedure information: Comparison was made to the study of August 20, 2011. Study status: Routine. Procedure: Transthoracic echocardiography. Image quality was fair. Scanning was performed from the parasternal, apical, subcostal, and suprasternal notch acoustic windows. Transthoracic stress echocardiography. Stress portion was not performed due to baseline echocardiographic abnormalites detected. Study components: M-mode, 2D, complete spectral Doppler, and color Doppler. Height: Height: 154.9cm. Height: 61in. Weight: Weight: 64kg. Weight: 140.7lb. Body mass index: BMI: 26.7kg/m^2. Body surface area: BSA: 1.68m^2. Patient status: Outpatient. Summary and Conclusion: - Left ventricle: The cavity size was normal. Wall thickness was increased in a pattern of moderate LVH. Systolic function was normal. The estimated ejection fraction was in the range of 60% to 65%. No diagnostic regional wall motion abnormality identified. Doppler parameters are consistent with abnormal left ventricular relaxation (grade 1 diastolic dysfunction). - Right ventricle: The cavity size was normal. Systolic function was normal. Systolic pressure was within the normal range. - Atrial septum: The interatrial septum was hypermobile. - Aortic valve: Trileaflet; moderately thickened, moderately calcified leaflets. There was severe stenosis. Mean gradient: 42mm Hg (S). Peak gradient: 77mm Hg (S). VTI ratio of LVOT to aortic valve: 0.18. Valve area: 0.58cm^2(VTI). Peak velocity ratio of LVOT to aortic valve: 0.17. Valve area: 0.54cm^2 (Vmax). - Mitral valve: Mildly thickened leaflets. Mild regurgitation. - Tricuspid valve: Mild regurgitation. - Pulmonic valve: Trivial to mild regurgitation. Comparison: Compared to the previous study, these findings represent worsening of aortic stenosis. Cardiac Anatomy: LEFT VENTRICLE: The cavity size was normal. Wall thickness was increased in a pattern of moderate LVH. Systolic function was normal. The estimated ejection fraction was in the range of 60% to 65%. No diagnostic regional wall motion abnormality identified. Doppler parameters are consistent with abnormal left ventricular relaxation (grade 1 diastolic dysfunction). RIGHT VENTRICLE: The cavity size was normal. Systolic function was normal. Systolic pressure was within the normal range. LEFT ATRIUM: The atrium was normal in size. RIGHT ATRIUM: The atrium was normal in size. ATRIAL SEPTUM: The interatrial septum was hypermobile. No defect or patent foramen ovale was identified. AORTIC VALVE: Trileaflet; moderately thickened, moderately calcified leaflets. Valve mobility was restricted. Doppler: There was severe stenosis. Trivial regurgitation. VTI ratio of LVOT to aortic valve: 0.18. Valve area: 0.58cm^2(VTI). Indexed valve area: 0.35cm^2/m^2 (VTI). Peak velocity ratio of LVOT to aortic valve: 0.17. Valve area: 0.54cm^2 (Vmax). Indexed valve area: 0.32cm^2/m^2 (Vmax). Mean gradient: 42mm Hg (S). Peak gradient: 77mm Hg (S). MITRAL VALVE: Mildly thickened leaflets. Mobility was not restricted. No echocardiographic evidence for prolapse. Doppler: There was no evidence for stenosis. Mild regurgitation. Valve area by pressure half-time: 3.39cm^2. Indexed valve area by pressure half-time: 2.02cm^2/m^2. TRICUSPID VALVE: Structurally normal valve. Mobility was not restricted. Doppler: There was no evidence for stenosis. Mild regurgitation. PULMONIC VALVE: Not well visualized. Doppler: There was no evidence for stenosis. Trivial to mild regurgitation. PERICARDIUM: There was no pericardial effusion. AORTA: Aortic root: The aortic root was normal in size. Aortic arch: The aortic arch was normal in size. SYSTEMIC VEINS: Inferior vena cava: The vessel was normal in size. INTRACARDIAC MASS THROMBUS: No intracavitary masses or thrombi detected. 2D measurements Adult Normal Range Left ventricle LVID ED, chord, PLAX *41.3 mm 43-52 LVID ES, chord, PLAX *19.48 mm 23-38 FS, chord, PLAX 53 % >29 LVPW, ED 16.45 mm IVS/LVPW ratio, ED 0.99 <1.3 Ventricular septum IVS, ED 16.33 mm LVOT Diam, S 20.1 mm AP diam 20.15 mm Area 3.17 cm^2 Aorta Root diam, ED 24.13 mm AAo AP diam, S 30.94 mm Right ventricle RVID ED, PLAX *17.27 mm 19-38 Doppler measurements Adult Normal Range Left ventricle IVRT 97 ms 60-100 Ea, lat paul, tiss DP 64.79 cm/s E/Ea, lat paul, tiss DP 1 LVOT Peak gracia, S 75.12 cm/s VTI, S 18.53 cm HR 74 bpm Cardiac output 4.4 L/min Cardiac index 2.6 L/(min-m^2) Aortic valve Peak gracia, S 440.14 cm/s Mean gracia, S 308.65 cm/s VTI, S 102.53 cm Mean gradient, S 42 mm Hg Peak gradient, S 77 mm Hg VTI ratio LVOT/AV 0.18 Area, VTI 0.58 cm^2 Area index (VTI) 0.35 cm^2/m^2 Peak gracia ratio, LVOT/AV 0.17 Area, Vmax 0.54 cm^2 Area index (Vmax) 0.32 cm^2/m^2 Mitral valve Peak E gracia 64.79 cm/s Peak A gracia 114.83 cm/s Deceleration time 224 ms 150-230 Pressure half-time 65 ms Peak E/A ratio 0.56 Area (PHT) 3.39 cm^2 Area index (PHT) 2.02 cm^2/m^2 Tricuspid valve Regurg peak gracia 234.14 cm/s Peak RV-RA gradient, S 22 mm Hg Max regurg gracia 234.14 cm/s Legend: Mean values are shown as u=mean value. Asterisk (*) gipson values outside specified normal range. [facility] is accredited with the Intersocietal Commission for the Accreditation of Echocardiography Laboratories (ICAEL) Prepared and Electronically Authenticated Les Perez [[id number]] Confirmed 01/15/2013 12:15 Les Perez MD ORDERABLES Final Resu lt INTERFACE SYSTEM Refer to clinic/hospital department documented in this encounter Visit Diagnoses Diagnosis Unspecified essential hypertension Preoperative clearance Preoperative examination, unspecified Aortic stenosis, moderate Aortic valve disorders Unspecified essential hypertension- Primary Preoperative clearance Preoperative examination, unspecified Aortic stenosis, moderate Aortic valve disorders documented in this encounter Care Teams Mud Tank Operator Relationship Specialty Start Date End Date Alexander Das MD [address] [place] [phone] PCP - General Family Practice 01/06/15 documented as of this encounter
--- OUTSIDE RECORDS SUMMARY | 2024-12-29 00:45 | XMS_ITS | Encounter Summary ---
Author Organization [facility] Address [address] [place] [address] Care Team Providers Care Plumbing And Heating Mechanic Name Role Phone Alexander Das MD Primary Care Provider [phone] Encounter Details Date Type Department Care Team (Latest Contact Info) Description 05/30/2005 Outpatient Historical 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
--- OUTSIDE RECORDS SUMMARY | 2024-12-29 00:45 | XMS_ITS | Encounter Summary ---
Author Organization [facility] Address [address] [place] [address] Care Team Providers Care Director Of Software Development Name Role Phone Alexander Das MD Primary Care Provider [phone] Reason for Visit * Reason Comments Medication Refill Encounter Details Date Type Department Care Team (Late st Contact Info) Description 04/04/2019 Refill [facility] [place] [address] Elisha Rogel, [facility] [address] [facility] [address] [place] [address] Social History Tobacco Use Types Packs/Day Years Used Date Smoking Tobacco: Former Cigarettes 0.5 3 0 04/16/1956 - 04/16/1959 Smokeless Tobacco: Never Alcohol Use Standard Drinks/Week Comments No 0 (1 standard drink = 0.6 oz pur e alcohol) Comments No Sex and Gender Information Value Date Recorded Sex Assigned at Not on file 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 OXANA CONCEPCION EY TECHNICIAN * Telephone Encounter - Princess Rivera - 04/04/2019 10:02 AM CST Refill per electronic request. Carvedilol 12.5 mg po BID. 180/3 OXANA HEALY EY TECHNICIAN documented in this encounter Plan of Treatment Not on file documented as of this encounter Visit Diagnoses Not on filedocumented in this encounter Care Teams Director Of Software Development Relationship Specialty Start Date End Date Alexander Das MD [address] [place] [phone] PCP - General Family Practice 01/06/15 documented as of this encounter
--- OUTSIDE RECORDS SUMMARY | 2024-12-29 00:45 | XMS_ITS | Encounter Summary ---
Author Organization [facility] Address [address] [place] [address] Care Team Providers Care Coin Machine Mechanic Name Role Phone Alexander Das MD Primary Care Provider [phone] Encounter Details Date Type Department Care Team (Latest Contact Info) Description 04/21/2005 Outpatient Historical [facility] [address] [place] [address] [phone] Annabella Badillo, [facility] [address] [place] [phone] HYPOTHYROIDISM NOS (Primary Dx) Social History Tobacco Use Types Packs/Day Years Used Date Smoking Tobacco: Never Assessed Comments Unknown Sex and Gender Information Value Date Recorded Sex Assigned at Not on file 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
--- OUTSIDE RECORDS SUMMARY | 2024-12-29 00:45 | XMS_ITS | Encounter Summary ---
Author Organization [facility] Address [address] [place] [address] Care Team Providers Care Grain Thresher Name Role Phone Alexander Das MD Primary Care Provider [phone] Encounter Details Date Type Department Care Team (Latest Contact Info) Description 06/09/2005 Outpatient Historical [facility] [address] [place] [address] [phone] Elena Crafword MD [address] [place] [phone] HYPERTENSION NOS (Primary Dx) Social History Tobacco Use Types Packs/Day Years Used Date Smoking Tobacco: Never Assessed Comments Unknown Sex and Gender Information Value Date Recorded Sex Assigned at Not on file Legal Sex Female 4:08 AM PAPER COUNTER Gender Identity Not on file Sexual Orientation Not on file documented as of this encounter Plan of Treatment Not on file documented as of this encounter Visit Diagnoses Diagnosis Unspecified essential hypertension- Primary documented in this encounter Care Teams Grain Thresher Relationship Specialty Start Date End Date Alexander Das MD [address] [place] [address] [phone] PCP - General Family Practice 01/06/15 documented as of this encounter
--- OUTSIDE RECORDS SUMMARY | 2024-12-29 00:45 | XMS_ITS | Clinical Summary ---
Author Organization [facility] Address [address] [address] Care Team Providers Care Customer Account Specialist Name Role Phone Vinod Das DO Primary Care Provider [phone] Allergies Active Allergy Reactions Criticality Noted Date Comments Atorvastatin Muscle Pain Low 08/22/2018 Metformin Nausea and Vomiting High 06/28/2011 Penicillins Rash Low 01/17/2008 Medications lancets (TRUEplus Lancets) 33 gauge TEST 4 TIMES DAILY. 100 Each 2 7 Active aspirin (MAITE CHEWABLE) 81 mg Tablet, Chewable Take 1 Tablet (81 mg) by mouth daily. 30 Tablet 3 6 Active bimatoprost (Lumigan) 0.01 % solution 7 Active Additional Information Patient not taking.Reported on 05/01/2023 carvediloL (COREG) 12.5 mg tablet take one tablet by mouth twice a day 180 Tablet 1 4 Active NIFEdipine (PROCARDIA XL) 30 mg Extended Release 24 hour tablet take one tablet by mouth daily 90 Tablet 3 4 Active clopidogreL (PLAVIX) 75 mg Tablet Take 1 Tablet (75 mg) by mouth daily. 90 Tablet 3 4 Active losartan (COZAAR) 50 mg tablet Take 1 Tablet (50 mg) by mouth daily. 90 Tablet 1 4 Active loperamide (IMODIUM) 2 mg capsuleIndicatio ns:Acute diarrhea Take 1 tab po after every loose stool, max 16mg/day 20 Capsule 4 Active Additional Information Patient not taking.Reported on 04/15/2024 furosemide (LASIX) 20 mg tabletIndication s:Localized swelling of both lower extremities Take 1 Tablet (20 mg) by mouth daily. 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 07/30/2018 Personal history of PR (myocardial infarction) 0 2015 Aortic valve prosthesis present 07/26/2015 MR (mitral regurgitation) 07/07/2015 Refused influenza vaccine 03/28/2015 Mixed hyperlipidemia 03/10/2015 History of giant cell arteritis 09/14/2011 Ataxia 06/14/2011 Essential hypertension 01/17/2008 Resolved Problems Problem Noted Date Diagnosed Date Resolved Date Blood glucose elevated 10/19/201802/18 Iron deficiency anemia 10/19/201803/15 Acute respiratory failure with hypoxia 08/02/2018 10/19/2018 Urinary retention 08/01/2018 10/19/2018 Complete uterine prolapse 08/01/2018 Bacteremia 07/31/2018 10/19/2018 Severe sepsis without septic shock 07/30/2018 10/19/2018 Acute cystitis without hematuria 07/30/2018 10/19/2018 Moderate protein-calorie malnutrition 07/30/2018 10/19/2018 Elevated troponin 07/05/2018 10/19/2018 Hypertensive urgency 07/05/2018 019 Submandibular gland swelling 07/25/2016 10/26/2016 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 07/07/20152016 Acute bronchitis 07/01/2015 10/26/2016 Acute exacerbation of CHF (c ongestive heart failure) 07/01/2015 10/26/2016 Controlled type 2 diabetes m ellitus without complication, without long-term current use of insulin 03/28/2015 06/30/2018 DM type 2, controlled, with complication 01/07/2015 03/28/2015 Bowel incontinence 04/06/2014 9 Altered bowel function 04/06/201406/30 BRBPR (bright red blood per rectum) 04/06/2014 06/30/2018 Glaucoma suspect 02/11/2014 06/30/2018 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 10/19/2018 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 08/07/201211/05 Eschar of scalp 11/09/2011 10/19/2018 Acute renal failure 08/20/2011 03/10/20 15 Hyponatremia 08/20/2011 11/16/2011 Generalized weakness 08/20/2011 013 Metabolic acidosis 08/20/2011 2 Stroke 08/20/2011 02/05/2013 Overview (08/11/2020): Sudden vision loss of right eye most likely from central retinal artery occlusion Elevated sed rate 08/20/2011 09/14/2011 Overview (08/11/2020): Evaluation for temporal arteritis Nausea \T\ vomiting 08/20/2011 11/16/19 12 Dehydration 08/20/2011 11/06/2012 Hypotension 08/20/2011 11/06/2012 Epigastric pain 08/20/2011 11/06/2012 Anemia 08/04/2011 08/06/2011 Headache(784.0) 08/04/2011 11/06/2012 UTI (lower urinary tract infection) 06/17/2011 11/06/2012 Overview (08/11/2020): levaquin started 3-4-12 Nausea with vomiting 06/14/2011 012 Constipation 06/14/2011 11/06/2012 Aortic stenosis, severe 06/14/201107/15 Overview (08/11/2020): Noted on Transthoracic echo CVA (cerebral infarction) 06/10/2011 Hyperlipidemia 01/17/2008 03/10/2015 DM w/o complication type II 01/17/2008 01/06/2015 Acute congestive heart failure 10/26/2016 Nonrheumatic aortic valve stenosis 10/26/2016 TIA - brief partial expressi ve aphasia 07/14/15 at 1900 10/26/2016 Encounters Date Type Department Care Team Description 12/03/2024 External Device Data STL ABSTRACTION Provider, Abstract 11/04/2024 External Device Data [facility] ABSTRACTION Provider, Abstract 10/29/2024 External Device Data [facility] ABSTRACTION Provider, Abstract 10/28/2024 External Device Data [facility] ABSTRACTION Provider, Abstract 10/14/2024 External Device Data [facility] ABSTRACTION Provider, Abstract 10/01/2024 External Device Data ST[facility] ABSTRACTION Provider, Abstract from Last 3 Months Immunizations Immunization Administration Dates Next Due Influenza Seasonal Unspecifi ed Formulation IM 01/14/2007 Influenza Vaccine High Dose 65+ Yrs IM 0,02/18/2019,02/18/2019 PNEUMOVAX (PPSV23) pneumococ javi polysaccharide 23-valent Vaccine 02/25/2020 PREVNAR (PCV13) pneumococcal 13-valent conjugate Vaccine 02/18/2019 Pneumococcal 13-tatyana Conj Vac c Patient Supplied 02/18/2019 Family History Medical History Relation Name Comments Heart Disease Brother 1 Cancer Brother 2 Cancer Brother 3 Cancer Brother 4 Other Brother 5 infant Other Brother 6 Diabetes Brother 7 Healthy Daughter 1 Healthy Daughter 2 Stroke Father Healthy Sister 1 Healthy Sister 2 Healthy Sister 3 Healthy Sister 4 Breast Cancer Sister 5 Heart Disease Sister 5 Healthy Sister 6 Healthy Sister 7 Healthy Sister 8 Blindness Neg Hx Detachment/Tears Neg Hx Glaucoma Neg Hx Macular Degen Neg Hx Relation Name Status Comments Brother 1 Brother 2 Brother 3 Brother 4 Brother 5 Brother 6 Brother 7 Alive Daughter 1 Alive Daughter 2 Alive Father Mother age 82 Sister 1 Alive Sister 2 Alive Sister 3 Alive Sister 4 Alive Sister 5 Sister 6 Alive Sister 7 Alive Sister 8 Alive Social History Tobacco Use Types Packs/Day Years Used Date Smoking Tobacco: Former Cigarettes Q uit: 04/16/1959 Smokeless Tobacco: Never Tobacco Cessation:Counseling Given: Not Answered Alcohol Use Standard Drinks/Week Comments No 0 [...] week 03/25/2020 How often do you attend [facility] or buddhism services? Never 03/25/2020 Do you belong to any clubs o r organizations such as uatsdin groups, unions, fraternal or athletic groups, or school groups? Yes 03/25/2020 Attends Club or Organization Meetings Not on ben e 03/25/2020 Marital Status Not on file 03/25/2020 Financial Resource Strain Answer Date R ecorded How hard is it for you to pa y for the very basics like food, housing, medical care, and heating? Not hard at all 10/10/2021 Food Insecurity Answer Date Recorded In the past 12 months, have you worried that your food would run out before you had money to buy more? Never true 10/10/2021 In the past 12 months, did y ou run out of food and didn't have money to buy more? Never true 10/10/2021 Transportation Needs Answer Date Record ed In the past 12 months, has l ack of transportation kept you from medical appointments or from getting medications? No 10/10/2021 Lack of Transportation (Non-Medical) Not on file 10/10/2021 Comments No Sex and Gender Information Value Date Recorded Sex Assigned at Not on file Legal Sex Female 2:28 PM GRANITE INSTALLER Gender Identity Not on file Sexual Orientation Not on file Last Filed Vital Signs Vital Sign Reading Time Taken Comments Blood Pressure 126/78 04/15/2024 4:29 PM GRANITE INSTALLER Pulse 81 04/15/2024 4:29 PM GRANITE INSTALLER Temperature 36.4 C (97.5 F) 04/15/2024 4:29 PM GRANITE INSTALLER Respiratory Rate 16 04/15/2024 4:29 PM GRANITE INSTALLER Oxygen Saturation 99% 04/15/2024 4:29 PM GRANITE INSTALLER Inhaled Oxygen Concentration - - Weight 55.7 kg (122 lb 12.8 oz) 04/15/2024 4:29 PM GRANITE INSTALLER Height 154.9 cm (5' 1 ) 04/15/2024 4:29 PM GRANITE INSTALLER Body Mass Index 23.2 04/15/2024 4:29 PM GRANITE INSTALLER Plan of Treatment Health Maintenance Due Date Last Done Comments DTAP/TDAP/TD VACCINES (1 - Tdap) 10/03/1954 ZOSTER VACCINE (1 of 2) 10/03/1985 OSTEOPOROSIS SCREENING 10/03/2000 RSV VACCINE (60+ or ) (1 - 1-dose 75+ series) 10/03/2010 [place] Preventative Visit/Annual Wellness Visit 04/16/2024 02/14/2024, 10/10/2021 INFLUENZA VACCINE (#1) 2024 , 02/18/2019, 02/18/2019, Additional history exists Traditional Medicare (ACO) A nnual Wellness Visit 02/14/2025 02/14/2024, 10/10/2021 PNEUMOCOCCAL VACCINE 50+ YEARS Completed 1 04/26/2019, 02/18/2019, 02/18/2019 Medical Devices Implanted Type Area Watershed Tender Device Identifier Shelf Expiration Date Model / Serial / Lot Lens Io [id number] 19.0 - [id number] Implanted:Qty: 1 on 09/26/2011 Eye Left: Eye [facility] 06/25/2016 [id number].19 0 / [id number] / Promus 3x12-07/08/2015 Implanted:07/07 (Quantity not on file) Stent Resolute [id number]/24/20 16 Implanted:07/07 (Quantity not on file) Stent Davis Barbara 3-07/14/2015 Implanted:07/13 (Quantity not on file) Valve [id number] / [id number] / Description:14 FR CATHETER U SED Insurance [place]ID [place] [address] DUAL COMPLETE HMO [facility] [id number] Care Teams Customer Account Specialist Relationship Specialty Start Date End Date Vinod Das DO [address] [place] [phone] PCP - General Family Practice 01/17/24
--- OUTSIDE RECORDS SUMMARY | 2024-12-29 00:45 | XMS_ITS | Encounter Summary ---
Author Organization [facility] Address [address] [place] [address] Care Team Providers Care Customer Sales Specialist Name Role Phone Alexander Das MD Primary Care Provider [phone] Encounter Details Date Type Department Care Team (Latest Contact Info) Description 01/01/2006 Outpatient Historical [facility] [address] [place] [address] [phone] Elena Crawford MD [address] [place] [phone] Other and Unspecified Hyperlipidemia (Primary Dx); Unspecified Essential Hypertension Social History Tobacco Use Types Packs/Day Years Used Date Smoking Tobacco: Never Assessed Comments Unknown Sex and Gender Information Value Date Recorded Sex Assigned at Not on file Legal Sex Female 4:08 AM INDEPENDENT SALES REPRESENTATIVE Gender Identity Not on file Sexual Orientation Not on file documented as of this encounter Plan of Treatment Not on file documented as of this encounter Visit Diagnoses Diagnosis Other and unspecified hyperlipidemia- Primary Unspecified essential hypertension documented in this encounter Care Teams Customer Sales Specialist Relationship Specialty Start Date End Date Alexander Das MD [address] [place] [address] [phone] PCP - General Family Practice 01/06/15 documented as of this encounter
--- OUTSIDE RECORDS SUMMARY | 2024-12-29 00:45 | XMS_ITS | Encounter Summary ---
Author Organization [facility] Address [address] [place] [address] Care Team Providers Care Fly Setter Name Role Phone Alexander Das MD Primary Care Provider Encounter Details Date Type Department Care Team (Latest Contact Info) Description 10/06/2005 Outpatient Historical [facility] [address] [place] [address] [phone] Elena Crawford MD [address] [place] [address] [phone] Unspecified Essential Hypertension (Primary Dx); Other and Unspecified Hyperlipidemia Social History Tobacco Use Types Packs/Day Years Used Date Smoking Tobacco: Never Assessed Comments Unknown Sex and Gender Information Value Date Recorded Sex Assigned at Not on file Legal Sex Female 4:08 AM FIELD MERCHANDISER Gender Identity Not on file Sexual Orientation Not on file documented as of this encounter Plan of Treatment Not on file documented as of this encounter Visit Diagnoses Diagnosis Unspecified essential hypertension- Primary Other and unspecified hyperlipidemia documented in this encounter Care Teams Fly Setter Relationship Specialty Start Date End Date Alexander Das MD [address] [place] [address] [phone] PCP - General Family Practice 01/06/15 documented as of this encounter
--- OUTSIDE RECORDS SUMMARY | 2024-12-29 00:45 | XMS_ITS | Encounter Summary ---
Author Organization [facility] Address [address] [place] [address] Care Team Providers Care Cafe Lead Name Role Phone Alexander Das MD Primary Care Provider [phone] Encounter Details Date Type Department Care Team (Latest Contact Info) Description 01/14/[address] [facility] [place] [address] [phone] Elena Crawford MD [address] [place] [address] DM w/o Complication Type II (CMS/HCC) (Primary Dx); Other and Unspecified Hyperlipidemia; Unspecified Essential Hypertension; Need Vaccination-Viral Disease Social History Tobacco Use Types Packs/Day Years Used Date Smoking Tobacco: Never Assessed Comments Unknown Sex and Gender Information Value Date Recorded Sex Assigned at Not on file Legal Sex Female 4:08 AM GUEST RELATIONS COORDINATOR Gender Identity Not on file Sexual Orientation Not on file documented as of this encounter Plan of Treatment Not on file documented as of this encounter Visit Diagnoses Diagnosis Type II or unspecified type diabetes mellitus without mention of complication, not stated as uncontrolled- Primary Other and unspecified hyperlipidemia Unspecified essential hypertension Need for prophylactic vaccination and inoculation against other viral diseases(V04.89) Need for prophylactic vaccination and inoculation against other viral diseases documented in this encounter Care Teams Cafe Lead Relationship Specialty Start Date End Date Alexander Das MD [address] [phone] PCP - General Family Practice 01/06/15 documented as of this encounter
--- OUTSIDE RECORDS SUMMARY | 2024-12-29 00:45 | XMS_ITS | Encounter Summary ---
Author Organization [facility] Address [address] [place] [address] Care Team Providers Care Meter Reader Inspector Name Role Phone Alexander Das MD Primary Care Provider [phone] Encounter Details Date Type Department Care Team (Latest Contact Info) Description 01/12/2006 Outpatient Historical [facility] [address] [place] [address] [phone] Elena Crawford MD [address] [place] [address] DM w/o Complication Type II (CMS/HCC) (Primary Dx); Unspecified Essential Hypertension; Other and Unspecified Hyperlipidemia Social History Tobacco Use Types Packs/Day Years Used Date Smoking Tobacco: Never Assessed Comments Unknown Sex and Gender Information Value Date Recorded Sex Assigned at Not on file Legal Sex Female 4:08 AM TRIPE SCRAPER Gender Identity Not on file Sexual Orientation Not on file documented as of this encounter Plan of Treatment Not on file documented as of this encounter Visit Diagnoses Diagnosis Type II or unspecified type diabetes mellitus without mention of complication, not stated as uncontrolled- Primary Unspecified essential hypertension Other and unspecified hyperlipidemia documented in this encounter Care Teams Meter Reader Inspector Relationship Specialty Start Date End Date Alexander Das MD [address] [place] [address] [phone] PCP - General Family Practice 01/06/15 documented as of this encounter
--- OUTSIDE RECORDS SUMMARY | 2024-12-29 00:45 | XMS_ITS | Encounter Summary ---
Author Organization [facility] Address [address] [place] [address] Care Team Providers Care Data Center Architect Name Role Phone Alexander Das MD Primary Care Provider [phone] Encounter Details Date Type Department Care Team (Latest Contact Info) Description 07/10/2005 Outpatient Historical [facility] [address] [place] [address] [phone] Elena Crawford MD [address] [place] [address] [phone] Unspecified Essential Hypertension (Primary Dx); Other Abnormal Blood Chemistry Social History Tobacco Use Types Packs/Day Years Used Date Smoking Tobacco: Never Assessed Comments Unknown Sex and Gender Information Value Date Recorded Sex Assigned at Not on file Legal Sex Female 4:08 AM VP RESEARCH Gender Identity Not on file Sexual Orientation Not on file documented as of this encounter Plan of Treatment Not on file documented as of this encounter Visit Diagnoses Diagnosis Unspecified essential hypertension- Primary Other abnormal blood chemistry documented in this encounter Care Teams Data Center Architect Relationship Specialty Start Date End Date Alexander Das MD [address] [place] [address] [phone] PCP - General Family Practice 01/06/15 documented as of this encounter
--- NOTE | 2024-12-29 01:06 | CTR_ITS ---
PROCEDURE INFORMATION: Exam: CT Pelvis Without Contrast, Skeleton Exam date and time: 12/29/2024 1:21 AM Age: 89 years old Clinical indication: Injury or trauma; Blunt trauma (contusions or hematomas); Pelvic region; EMS arrival from [facility] for fall. Patient rolled out of bed falling face first onto floor. Hematoma with laceration to left frontal. C/O left sided pelvic pain. Anticoagulated. C collar in place. ; Additional info: Fall L pelvic pain TECHNIQUE: Imaging protocol: Computed tomography of the pelvis without contrast. Exam focused on the skeleton. Radiation optimization: All CT scans at this facility use at least one of these dose optimization techniques: automated exposure control; mA and/or kV adjustment per patient size (includes targeted exams where dose is matched to clinical indication); or iterative reconstruction. COMPARISON: CT abdomen pelvis w con* [id number] 08/07/2024 15:30 RADIATION DOSE METRICS: Total DLP (mGy-cm): 383.94 FINDINGS: Bones/joints: No acute fracture. No dislocation. Degenerative disc disease at L3-L4 local 5 without significant central spinal canal stenosis. Facet arthrosis at L3-L4, L4-L5 and L5-S1. Moderate osteoarthritis of both hips. Soft tissues: Bilateral superficial femoral artery vascular calcifications are present. CT/CT bony pelvis [id number] IMPRESSION: 1. No acute fracture or dislocation. 2. Bones show arthritis of both hips.
--- NOTE | 2024-12-29 01:06 | CTR_ITS ---
PROCEDURE INFORMATION: Exam: CT Head Without Contrast Exam date and time: 12/29/2024 1:17 AM Age: 89 years old Clinical indication: Injury or trauma; Blunt trauma (contusions or hematomas); EMS arrival from [facility] for fall. Patient rolled out of bed falling face first onto floor. Hematoma with laceration to left frontal. C/O left sided pelvic pain. Anticoagulated. C collar in place. ; Additional info: Fall head inj TECHNIQUE: Imaging protocol: Computed tomography of the head without contrast. Radiation optimization: All CT scans at this facility use at least one of these dose optimization techniques: automated exposure control; mA and/or kV adjustment per patient size (includes targeted exams where dose is matched to clinical indication); or iterative reconstruction. COMPARISON: No relevant prior studies available. RADIATION DOSE METRICS: Total DLP (mGy-cm): 988.6 FINDINGS: Brain: There is hede-un-qfrsaitj cerebral atrophy. There are yiyc-ga-oxitqsns deep white matter microangiopathic ischemic changes. No acute hemorrhage is identified. No mass or mass effect is identified. Mild right posterior parietal encephalomalacia. 9 mm calcification dural-based calcification arising from the left frontal bone could represent a small meningioma. No significant mass effect or edema. Cerebral ventricles: Moderately dilated ventricles secondary to atrophy. Paranasal sinuses: Trace left maxillary mucosal thickening. Mild right posterior sphenoidal sinus mucosal thickening. Mastoid air cells: Trace fluid in the right lateral mastoids. The mastoids are otherwise clear. Bones: No acute osseous abnormalities are seen. Soft tissues: Moderate frontal scalp hematoma. CT/CT head wo con* [id number] IMPRESSION: 1. No acute intracranial pathology. 2. Senescent changes.
--- NOTE | 2024-12-29 01:13 | W.ED.FALL ---
HPI - Fall General: Chief Complaint: Fall Stated Complaint: FALL Time Seen by Provider: 12/29/24 00:45 History of Present Illness: Patient is an 89-year-old female who presents to the emergency department after a fall at her shelter. According to the report from the shelter, the patient got out of bed and fell. The patient states she does not remember getting out of bed or why she would have done so, stating 'I don't even remember raising up in the bed. I fell over the foot of the bed.' She reports waking up on the floor with significant pain. The patient is currently complaining of pain in the left groin area. She has an indwelling urinary catheter in place, which remains intact. There is no reported loss of consciousness, though the patient appears to have some confusion about the events. No bleeding was noted by shelter staff. The patient denies neck pain when asked specifically. Related Data Home Medications ?Medication ?Instructions ?Recorded ?Confirmed acetaminophen 325 mg tablet 650 mg PO Q4H PRN pain or temp 07/08/24 07/08/24 aspirin 81 mg tablet,delayed 81 mg PO DAILY 07/08/24 07/08/24 release bisacodyl 10 mg rectal suppository 10 mg CO DAILY PRN Constipation 07/08/24 07/08/24 carvedilol 12.5 mg tablet 12.5 mg PO BID 07/08/24 07/08/24 clopidogrel 75 mg tablet 75 mg PO DAILY 07/08/24 07/08/24 furosemide 20 mg tablet 20 mg PO DAILY 07/08/24 07/08/24 loperamide 2 mg capsule See Rx Instructions .Route 07/08/24 07/08/24 .COMPLEX PRN Diarrhea losartan 50 mg tablet 50 mg PO DAILY 07/08/24 07/08/24 magnesium hydroxide 400 mg/5 mL 15 ml PO DAILY PRN Constipation 07/08/24 07/08/24 oral suspension (Milk of Magnesia) nifedipine 30 mg tablet,extended 30 mg PO DAILY 07/08/24 07/08/24 release nitrofurantoin 100 mg PO BID 07/08/24 07/08/24 monohydrate/macrocrystals 100 mg capsule polyethylene glycol 3350 17 17 g PO DAILY 07/08/24 07/08/24 gram/dose oral powder (Miralax) Previous Rx's ?Medication ?Instructions ?Recorded tamsulosin 0.4 mg capsule (Flomax) 0.4 mg PO DAILY #30 caps 07/08/24 Allergies Allergy/AdvReac Type Severity Reaction Status Date / Time atorvastatin Allergy Unknown Verified 07/08/24 14:17 metformin Allergy Unknown Verified 07/08/24 14:17 Penicillins Allergy Unknown Verified 07/08/24 14:17 [facility] ED PFSH: Medical History (Updated 12/29/24 @ 04:03 by Pola Nicolas, ) Chronic combined systolic and diastolic CHF (congestive heart failure) Uterine prolapse HTN (hypertension) GERD (gastroesophageal reflux disease) CAD (coronary artery disease) Physical Exam Const: GENERAL APPEARANCE: cooperative and frail appearing ORIENTATION/CONSCIOUSNESS: Yes awake and Yes oriented to person HENMT: COMMON NORMALS: normocephalic HEAD & SCALP: normocephalic, contusion, hematoma and laceration (Left frontal) Eye: COMMON NORMALS: Equal, round and reactive pupils present and EOMs intact bilaterally PUPIL: Yes Equal, round and reactive pupils present Neck/C-Spine: CERVICAL SPINE: No Cervical spine tenderness Chest: CHEST: Yes Symmetrical chest wall rise Resp: COMMON NORMALS: clear to auscultation bilaterally EFFORT & INSPECTION: Yes symmetric chest movement, No tachypneic and No labored AUSCULTATION: clear to auscultation bilaterally Cardio: COMMON NORMALS: regular rate and regular rhythm RATE: regular rate RHYTHM: regular rhythm GI: COMMON NORMALS: Soft to palpation PALPATION: Yes Soft to palpation, No Tenderness to palpation present (GI) and No Guarding due to palpation present (GI) Extremity: NARRATIVE EXTREMITY EXAM: Exam of the left lower extremity reveal tenderness over the left anterior and lateral hip. There are some pain with range of motion. There is no deformity. Pulses and sensation are intact to touch distally Neuro: SENSORIUM/ORIENTATION: Yes oriented to person Procedures Laceration Laceration 1: Site: face Side (If applicable): left Size (cm): 2 Description: linear Depth: simple, single layer Local Anesthetic: lidocaine 1% and with epi Amount of anesthesia used (mL): 4 Pre-repair: wound explored, irrigated extensively and deep structures intact Skin layer closed with: other (Prolene) Size (cm): 4-0 Number of sutures: 3 Technique: simple, interrupted Course Vital Signs: Vital signs: Vital Signs Temperature 98.9 F 12/29/24 00:35 Pulse Rate 63 12/29/24 02:43 Respiratory Rate 14 12/29/24 02:43 Blood Pressure 154/59 12/29/24 02:43 Pulse Oximetry 95 12/29/24 02:43 Oxygen Delivery Me thod Room Air 12/29/24 02:43 MDM - Fall Medical Decision Making Vitals are stable. Originally the patient complained of pelvic pain. This seems to have improved quite a bit. Small laceration to the left frontal forehead. Repaired with [address] of the head is negative for acute change. CT of the cervical spine is negative. CT of the pelvis shows no acute fracture or dislocation. 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 She will be discharged back to the shelter. To return for any problems. Lab Data 12/29/24 02:38 12/29/24 02:[address] 12/29/24 01:06 IMPRESSION: 1. No acute intracranial pathology. 2. Senescent changes. Pelvis CT 12/29/24 01:06 IMPRESSION: 1. No acute fracture or dislocation. 2. Bones show arthritis of both hips. Cervical Spine CT 12/29/24 01:25 IMPRESSION: No evidence of acute fracture. Laboratory Results WBC 8.88 10^3/uL (3.29-11.43) 12/29/24 02:38 RBC 3.48 10^6/uL (3.85-5.65) L 12/29/24 02:38 Hgb 10.20 g/dL (11.27-16.99) L 12/29/24 02:38 Hct 30.7 % (36-47) L 12/29/24 02:38 MCV 88.2 fl (85-98) 12/29/24 02:38 MCH 29.3 pg (27-33) 12/29/24 02:38 MCHC 33.2 g/dL (30-55) 12/29/24 02:38 RDW 14.1 % (12.1-15.1) 12/29/24 02:38 Plt Count 217 10^3/cmm (157-399) 12/29/24 02:38 MPV 10.3 fL (7.4-10.4) 12/29/24 02:38 Neut % (Auto) 67.5 % 12/29/24 02:38 Lymph % (Auto) 16.0 % 12/29/24 02:38 Hemphill % (Auto) 9.8 % 12/29/24 02:38 Eos % (Auto) 5.6 % 12/29/24 02:38 Baso % (Auto) 0.5 % 12/29/24 02:38 Neut # (Auto) 6.00 10^3/uL (1.8-7.7) 12/29/24 02:38 Lymph # (Auto) 1.4 10^3/uL (0.8-4.8) 12/29/24 02:38 Hemphill # (Auto) 0.9 10^3/uL (0.2-0.9) 12/29/24 02:38 Eos # (Auto) 0.5 10^3/uL (0.0-0.8) 12/29/24 02:38 Baso # (Auto) 0.0 10^3/uL (0.0-0.1) 12/29/24 02:38 Nucleated RBC % (auto) 0 % 12/29/24 02:38 Nucleated RBCs # 0.0 /100WBC 12/29/24 02:38 Sodium 139 mmol/L (136-145) 12/29/24 02:38 Potassium 3.4 mmol/L (3.5-5.1) L 12/29/24 02:38 Chloride 106 mmol/L (98-107) 12/29/24 02:38 Carbon Dioxide 23 mmol/L (22-29) 12/29/24 02:38 Anion Gap 13.4 (5-19) 12/29/24 02:38 BUN 31 mg/dL (8-23) H 12/29/24 02:38 Creatinine 0.8 mg/dL (0.5-0.9) 12/29/24 02:38 GFR Calculation Not Reportable 12/29/24 02:38 Glucose 105 mg/dL (65-115) 12/29/24 02:38 Calculated Osmolality 295 mOsm/kg (285-295) 12/29/24 02:38 Calcium 8.9 mg/dL (8.5-10.5) 12/29/24 02:38 Total Bilirubin 0.3 mg/dL (0.15-1.2) 12/29/24 02:38 AST 13 U/L (0-32) 12/29/24 02:38 ALT 8 U/L (0-33) 12/29/24 02:38 Alkaline Phosphatase 75 U/L (35-105) 12/29/24 02:38 Total Protein 6.6 g/dL (6.6-8.7) 12/29/24 02:38 Albumin 3.4 g/dL (3.5-5.2) L 12/29/24 02:38 Globulin 3.2 g/dL (1.3-4.6) 12/29/24 02:38 All radiology interpretation(s) finalized by discharge Discharge Plan Discharge Patient Disposition: Home Clinical Impression: Contusion of left hip and thigh, Forehead contusion, Forehead laceration Condition: Stable Prescriptions: No Action losartan 50 mg tablet 50 mg PO DAILY acetaminophen 325 mg Tablet 650 mg PO Q4H PRN (Reason: pain or temp) carvedilol 12.5 mg tablet 12.5 mg PO BID loperamide 2 mg capsule See Rx Instructions .ROUTE .COMPLEX PRN (Reason: Diarrhea) Rx Instructions: TAKE ONE CAPSULE BY MOUTH AFTER EVERY LOOSE STOOL, MAX 16 MG PER DAY. nifedipine 30 mg tablet extended release 30 mg PO DAILY clopidogrel 75 mg tablet 75 mg PO DAILY aspirin [Aspir-81] 81 mg Tablet,Delayed Release (Dr/Ec) 81 mg PO DAILY magnesium hydroxide [Milk of Magnesia] 400 mg/5 mL Suspension 15 ml PO DAILY PRN (Reason: Constipation) bisacodyl 10 mg Suppository 10 mg CO DAILY PRN (Reason: Constipation) furosemide 20 mg tablet 20 mg PO DAILY polyethylene glycol 3350 [Miralax] 17 gram/dose Powder 17 g PO DAILY nitrofurantoin monohyd/m-cryst 100 mg capsule 100 mg PO BID tamsulosin [Flomax] 0.4 mg capsule 0.4 mg PO DAILY Qty: 30 0RF Discharge Orders: Discharge ED (Routine); Ordered 12/29/24 Ordered By: Pola Nicolas Referrals: Saran George [Primary Care Provider, Internal Medicine] Patient Instructions: Hip Contusion (ED), Facial Contusion (ED), Facial Laceration (ED), Opioid Safety, Pain Management, Patient Portal & [facility] Instructions Activity Restrictions/Additional Instructions: Sutures out in 5 days. Return for any problems. Print Language: Eritrean Coding Level of Care Code ED Cutting Machine Offbearer for Paul Chavez
--- NOTE | 2024-12-29 01:25 | CTR_ITS ---
PROCEDURE INFORMATION: Exam: CT Cervical Spine Without Contrast Exam date and time: 12/29/2024 1:24 AM Age: 89 years old Clinical indication: Injury or trauma; Blunt trauma; EMS arrival from [facility] for fall. Patient rolled out of bed falling face first onto floor. Hematoma with laceration to left frontal. C/O left sided pelvic pain. Anticoagulated. C collar in place. TECHNIQUE: Imaging protocol: Computed tomography of the cervical spine without contrast. Radiation optimization: All CT scans at this facility use at least one of these dose optimization techniques: automated exposure control; mA and/or kV adjustment per patient size (includes targeted exams where dose is matched to clinical indication); or iterative reconstruction. COMPARISON: CT head wo con* [id number] 12/29/2024 1:17 AM RADIATION DOSE METRICS: Total DLP (mGy-cm): 170.98 FINDINGS: Bones: Straightening of the normal cervical lordosis. Alignment is otherwise intact. Vertebral body heights are well-maintained. No evidence of acute fracture. [id number] degenerative change. Lungs: Lung apices are normal. Soft tissues: The soft tissues are within normal limits. CT/CT cervical spin wo con* [id number] IMPRESSION: No evidence of acute fracture.
--- NOTE | 2024-12-29 02:28 | PC.NURSE ---
C-Collar removed per Dr. Nicolas's direction.
[2024-12-29 02:43] VITALS: BP 154/59; PULSE 63; RESP 14; O2SAT 95
[2024-12-29 02:48] LABS: Hematocrit 30.7 % (36-47); Hemoglobin 10.20 g/dL (11.27-16.99); Mean Corpuscular HGB Conc 33.2 g/dL (30-55); Mean Corpuscular Hemoglobin 29.3 pg (27-33); Mean Corpuscular Volume 88.2 fl (85-98); Nucleated Red Blood Cells % 0 %; Platelet Count 217 10^3/cmm (157-399); Red Blood Count 3.48 10^6/uL (3.85-5.65); White Blood Count 8.88 10^3/uL (3.29-11.43)
[2024-12-29 03:00] LABS: Alanine Aminotransferase 8 U/L (0-33); Albumin Level 3.4 g/dL (3.5-5.2); Alkaline Phosphatase 75 U/L (35-105); Anion Gap 13.4 (5-19); Aspartate Amino Transferase 13 U/L (0-32); Blood Urea Nitrogen 31 mg/dL (8-23); Calcium 8.9 mg/dL (8.5-10.5); Carbon Dioxide 23 mmol/L (22-29); Chloride 106 mmol/L (98-107); Creatinine Clr Calc Pharmacy 41.7147; Globulin 3.2 g/dL (1.3-4.6); Glucose 105 mg/dL (65-115); Osmolality Calculated 295 mOsm/kg (285-295); Potassium 3.4 mmol/L (3.5-5.1); Sodium 139 mmol/L (136-145); Total Protein 6.6 g/dL (6.6-8.7)
[2024-12-29] MEDS: lidocaine-epi 1% 20 mL INJ INJECTION (03:41)
[2024-12-29 04:12] VITALS: BP 129/66; PULSE 56; RESP 16; O2SAT 98
[2024-12-29 07:42] VITALS: BP 111/60; PULSE 54; O2SAT 97
== END 2024-12-29 11:37 | disposition home or self-care (01) ==
PROVIDERS: Emergency Provider Emergency Medicine; PCP Student in an Organized Health Care Education/Training Program
DX: S01.81XA Laceration without foreign body of other part of head, initial encounter (principal); S70.02XA Contusion of left hip, initial encounter; S70.12XA Contusion of left thigh, initial encounter; Z79.02 Long term (current) use of antithrombotics/antiplatelets; Z79.82 Long term (current) use of aspirin; I11.0 Hypertensive heart disease with heart failure; I50.42 Chronic combined systolic (congestive) and diastolic (congestive) heart failure; I25.10 Atherosclerotic heart disease of native coronary artery without angina pectoris; W06.XXXA Fall from bed, initial encounter
CPT/HCPCS: 12011; 70450; 72125; 72192; 80053; 85025; 99284; J9999